=== PATIENT | female | born 1970 | race Caucasian/White ===

== ENCOUNTER 2019-12-16 13:20 | Emergency (ER) | payer BC, SELFPAY ==
[2019-12-16 13:26] VITALS: BP 170/93; PULSE 91; RESP 16; TEMP 37.1; O2SAT 100; BMI 25.7
--- NOTE | 2019-12-16 13:26 | ED_ITS ---
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
--- NOTE | 2019-12-16 13:31 | PC.NURSE ---
EKG done at 1330 and shown to ER doctor
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
--- NOTE | 2019-12-16 13:43 | XR_ITS ---
WS: [id number] FOREARM RIGHT TECHNIQUE: 2 views of the right forearm CLINICAL INFORMATION: trauma COMPARISON: None. FINDINGS: No evidence of radial head dislocation. The radius and ulna appear normal. No visualized forearm frac tures. Normal radiocarpal joint. XR/XR forearm RT 2V [id number] IMPRESSION: Normal right forearm.
[2019-12-16 14:02] LABS: Basophils % 0.7 %; Eosinophils # 0.1 10^3/uL (0.0-0.8); Eosinophils % 2.4 %; Hemoglobin 9.2 g/dL (11.5-15.3); Lymphocytes # 1.8 10^3/uL (0.8-4.8); Lymphocytes % 29.5 %; Mean Corpuscular HGB Conc 27.9 g/dL (30.0-36.0); Mean Corpuscular Hemoglobin 19.4 pg (28.0-34.0); Mean Corpuscular Volume 69.5 fL (81-99); Mean Platelet Volume 10.6 fL (7.4-10.4); Monocytes # 0.5 10^3/uL (0.2-0.9); Monocytes % 7.7 %; Neutrophils # 3.5 10^3/uL (1.8-7.7); Neutrophils % 59.5 %; Nucleated Red Blood Cells % 0 %; Platelet Count 428 10^3/cmm (130-400); Red Blood Count 4.75 10^6/uL (4.1-5.3); Red Cell Distribution Width 17.6 % (12.1-15.1); White Blood Count 5.9 10^3/uL (4.0-10.0)
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
[2019-12-16 14:35] LABS: HCG, Serum Qual Negative (Negative)
[2019-12-16 15:10] LABS: Alanine Aminotransferase 35 U/L (0-33); Albumin Level 4.2 g/dL (3.5-5.2); Alkaline Phosphatase 119 IU/L (35-105); Anion Gap 17.9 (5-19); Aspartate Amino Transferase 40 U/L (0-32); Blood Urea Nitrogen 11 mg/dL (6-20); Calcium 8.9 mg/dL (8.5-10.5); Carbon Dioxide 20 mmol/L (22-29); Chloride 101 mmol/L (98-107); Globulin 3.1 g/dL (1.3-4.6); Glomerular Filtration Rate 107.2 mL/min (90-130); Glucose 111 mg/dL (65-115); Osmolality Calculated 277 mOsm/kg (285-295); Potassium 3.9 mmol/L (3.5-5.1); Sodium 135 mmol/L (136-145); Total Bilirubin 0.2 mg/dL (0.15-1.2); Total Protein 7.3 g/dL (6.6-8.7)
[2019-12-16 15:12] LABS: Alcohol Level < 10 mg/dL (0-10); Creatine Phosphokinase 331 U/L (26-192)
[2019-12-16 15:22] LABS: Add Urine Microscopic? NO
[2019-12-16 15:29] LABS: Bilirubin Urine Neg (NEGATIVE); Blood Urine Neg (Negative); Glucose Urine UA Norm (Normal); Ketones Urine Negative (Negative); Leukocyte Esterase Urine Negative (Negative); Nitrate Urine Negative (Negative); Protein Urine Neg (Negative); Urine Appearance Clear (CLEAR); Urine Color Yellow (Yellow); Urobilinogen Urine Norm (Negative); pH Urine 6 (5-7)
[2019-12-16 15:36] LABS: Amphetamines Screen Urine Positive (Negative); Barbiturates Screen Urine Negative (Negative); Benzodiazepines Screen Urine Negative (Negative); Cocaine Screen Urine Negative (Negative); Opiate Screen Urine Negative (Negative); PCP Screen Urine Negative (Negative); THC Screen Urine Negative (Negative)
[2019-12-16 16:00] VITALS: BP 136/74; PULSE 78; RESP 18; O2SAT 98
== END 2019-12-16 16:04 | disposition home or self-care (01) ==
PROVIDERS: Emergency Provider Physician Assistant
DX: F15.90 Other stimulant use, unspecified, uncomplicated (principal); M62.82 Rhabdomyolysis; F17.210 Nicotine dependence, cigarettes, uncomplicated
CPT/HCPCS: 12345; 36415; 70450; 73090; 80053; 80306; 80307; 81003; 82550; 84703; 85025; 99282; 99283; A9270

== ENCOUNTER 2023-04-18 16:51 | Emergency (ER) | payer BC, SELFPAY ==
[2023-04-18 16:53] VITALS: BP 168/93; PULSE 120; RESP 17; TEMP 36.7; O2SAT 97
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
== END 2023-04-18 18:46 | disposition left against medical advice (07) ==
PROVIDERS: Emergency Provider Family Medicine
DX: F41.9 Anxiety disorder, unspecified (principal); F41.1 Generalized anxiety disorder; F43.0 Acute stress reaction; Z53.21 Procedure and treatment not carried out due to patient leaving prior to being seen by health care provider; F17.210 Nicotine dependence, cigarettes, uncomplicated
CPT/HCPCS: 99282

== ENCOUNTER 2023-08-23 18:35 | Inpatient (IN) | payer BC, SELFPAY ==
[2023-08-23 18:38] VITALS: BP 201/113; PULSE 98; RESP 20; TEMP 36.8; O2SAT 99
--- NOTE | 2023-08-23 18:50 | ED.C_ITS ---
HPI - Psych 2 General: Chief Complaint: Psychiatric Symptoms Stated Complaint: SI Time Seen by Provider: 08/23/23 18:38 History of Present Illness: 52-year-old female presents for mental h ealt evaluation. She actually to me says that the reason she is having some thoughts of harming herself, is that she has a terrible headache, and has had 1 for several days. She has been vomiting as well. She was exposed to COVID a few days ago. She denies any fever. She denies cough. She says that her head hurts so bad she was considering ending her life. She does not usually get headaches. She is a daily drinker, and is intoxicated. She does have a history of mental health disease, and has been hospitalized in the distant past. Associated symptoms: Reports depression Review of Systems 2 Const: Denies: fever(s), chills or body aches Eyes: Denies: change in vision Card: Denies: chest pain or palpitations Resp: Denies: dyspnea, productive cough, non-productive cough or wheezing GI: Reports: nausea and vomiting; Denies: abdominal pain, diarrhea or hematochezia : Denies: difficulty voiding Skin/Breast: Denies: rash Neuro: Denies: headache(s), weakness in extremities, dizziness or confusion Psych: Reports: anxiety and depression PFS ED 2 PFSH: Social History Smoking and tobacco/nicotine status: current every day tobacco/nicotine user Physical Exam 2 Const: GENERAL APPEARANCE: cooperative; not ill appearing and not frail appearing NUTRITIONAL APPEARANCE: thin HENMT: COMMON NORMALS: normocephalic and Normal external nose present HEAD & SCALP: normocephalic and scalp lesion (Multiple scabies lesions to the scalp.) FACE & SINUS: normal facial exam and face symmetric NOSE: Normal external nose present Eye: COMMON NORMALS: Equal, round and reactive pupils present and EOMs intact bilaterally PUPIL: Yes Equal, round and reactive pupils present Neck/C-Spine: GENERAL: Yes trachea midline Chest: CHEST: Yes Symmetrical chest wall rise Resp: COMMON NORMALS: normal respiratory effort, No retractions, No use of accessory muscles and clear to auscultation bilaterally AUSCULTATION: clear to auscultation bilaterally Cardio: COMMON NORMALS: regular rate and regular rhythm RATE: regular rate RHYTHM: regular rhythm GI: COMMON NORMALS: Normal to inspection, nondistended, normoactive bowel sounds present Extremity: COMMON NORMALS: no pedal edema Neuro: RAVI COMA SCALE: document GCS findings [place] coma scale eye opening: Spontaneous Ravi coma scale verbal response: Orientated Ravi coma scale motor response: Obey commands [place] coma scale total score: 15 S ENSORY EXAM: Yes extremities (intact) Psych: COMMON NORMALS: speech normal SPEECH: Yes normal speech Skin: NARRATIVE SKIN EXAM: See scalp exam Course 2 Vital Signs: Vital signs: Vital Signs Temperature 98.3 F 08/23/23 18:38 Pulse Rate 98 08/23/23 18:38 Respiratory Rate 18 08/23/23 20:21 Blood Pressure 201/113 08/23/23 18:38 Pulse Oximetry 99 08/23/23 18:38 Oxygen Delivery Me thod Room Air 08/23/23 18:38 MDM - Psych Medical Decision Making Patient's headache is improved. She is still suicidal. Plan was to get hit by car. Her hemoglobin is 7.5. This will require at least outpatient follow-up and workup. Her potassium is 3.2 and is repleted. She is marijuana positive, with an alcohol level of 310. She is a daily drinker, and functions at this level very likely. She is completely conversant and does not appear significantly intoxicated at all on exam. She does have a nitrate positive urinary tract infection which will be treated. Liver enzymes are elevated, likely from alcoholism, but ultrasound of the gallbladder and liver have been ordered. Spoke with psychiatry. They are willing to take in the inpatient setting provided scabies situation is controlled, and ultrasound is not remarkable. Ultrasound not remarkable. Because of scabies infestation, patient will have to be admitted to the medical floor with a sitter instead of NPU. [facility] protocol orders written. UTI will be treated. Lab Data 08/23/23 19:02 08/23/23 19:02 Radiology Impressions Gallbladder Ultrasound 08/23/23 21:02 IMPRESSION: No acute findings. Laboratory Results WBC 5.04 10^3/uL (3.29-11.43) 08/23/23 19:02 RBC 3.79 10^6/uL (3.85-5.65) L 08/23/23 19:02 Hgb 7.50 g/dL (11.27-16.99) L 08/23/23 19:02 Hct 26.4 % (36-47) L 08/23/23 19:02 MCV 69.7 fl (85-98) L 08/23/23 19:02 MCH 19.8 pg (27-33) L 08/23/23 19:02 MCHC 28.4 g/dL (30-55) L 08/23/23 19:02 RDW 19.7 % (12.1-15.1) H 08/23/23 19:02 Plt Count 324 10^3/cmm (157-399) 08/23/23 19:02 MPV 9.5 fL (7.4-10.4) 08/23/23 19:02 Neut % (Auto) 43.9 % 08/23/23 19:02 Lymph % (Auto) 39.9 % 08/23/23 19:02 Adams % (Auto) 7.3 % 08/23/23 19:02 Eos % (Auto) 6.9 % 08/23/23 19:02 Baso % (Auto) 1.8 % 08/23/23 19:02 Neut # (Auto) 2.21 10^3/uL (1.8-7.7) 08/23/23 19:02 Lymph # (Auto) 2.0 10^3/uL (0.8-4.8) 08/23/23 19:02 Adams # (Auto) 0.4 10^3/uL (0.2-0.9) 08/23/23 19:02 Eos # (Auto) 0.4 10^3/uL (0.0-0.8) 08/23/23 19:02 Baso # (Auto) 0.1 10^3/uL (0.0-0.1) 08/23/23 19:02 Nucleated RBC % (auto) 0 % 08/23/23 19:02 Nucleated RBCs # 0.0 /100WBC 08/23/23 19:02 Sodium 137 mmol/L (136-145) 08/23/23 19:02 Potassium 3.2 mmol/L (3.5-5.1) L 08/23/23 19:02 Chloride 101 mmol/L (98-107) 08/23/23 19:02 Carbon Dioxide 25 mmol/L (22-29) 08/23/23 19:02 Anion Gap 14.2 (5-19) 08/23/23 19:02 BUN 10 mg/dL (6-20) 08/23/23 19:02 Creatinine 0.7 mg/dL (0.5-0.9) 08/23/23 19:02 GFR Calculation 88.6 mL/min (90-130) L 08/23/23 19:02 Glucose 84 mg/dL (65-115) 08/23/23 19:02 Calculated Osmolality 282 mOsm/kg (285-295) L 08/23/23 19:02 Calcium 8.5 mg/dL (8.5-10.5) 08/23/23 19:02 Total Bilirubin 0.3 mg/dL (0.15-1.2) 08/23/23 19:02 AST 216 U/L (0-32) H 08/23/23 19:02 ALT 86 U/L (0-33) H 08/23/23 19:02 Alkaline Phosphatase 163 U/L (35-105) H 08/23/23 19:02 Total Protein 8.4 g/dL (6.6-8.7) 08/23/23 19:02 Albumin 3.7 g/dL (3.5-5.2) 08/23/23 19:02 Globulin 4.7 g/dL (1.3-4.6) H 08/23/23 19:02 Lipase 100 U/L (13-60) H 08/23/23 19:02 HCG, Qual Negative (Negative) 08/23/23 19:07 Urine Color Yellow (Yellow) 08/23/23 19:07 Urine Appearance Cloudy (CLEAR) A 08/23/23 19:07 Urine pH 6.5 (5-7) 08/23/23 19:07 Ur Specific [place] 1.015 (1.005-1.030) 08/23/23 19:07 Urine Protein Trace (Negative) 08/23/23 19:07 Urine Glucose (UA) Norm (Normal) 08/23/23 19:07 Urine Ketones Negative (Negative) 08/23/23 19:07 Urine Blood Neg (Negative) 08/23/23 19:07 Urine Nitrate Positive (Negative) H 08/23/23 19:07 Urine Bilirubin Neg (Negative) 08/23/23 19:07 Urine Urobilinogen Norm mg/dL (Negative) 08/23/23 19:07 Ur Leukocyte Esterase 1+ (Negative) H 08/23/23 19:07 Urine RBC 5-10 /hpf (0-2) H 08/23/23 19:07 Urine WBC 55-80 /hpf (0-5) H 08/23/23 19:07 Ur Squamous Epith Cells 5-10 /hpf (0-5) H 08/23/23 19:07 Amorphous Sediment Not Reportable 08/23/23 19:07 Urine Bacteria 2+ /hpf (NONE) H 08/23/23 19:07 Urine Mucus 1+ /hpf 08/23/23 19:07 Salicylates < 0.3 mg/dL (3-10) L 08/23/23 19:02 Urine Opiates Screen Negative ng/mL (Negative) 08/23/23 19:07 Acetaminophen < 5.0 ug/mL (10-30) L 08/23/23 19:02 Ur Barbiturates Screen Negative ng/mL (Negative) 08/23/23 19:07 Ur Phencyclidine Scrn Negative ng/mL (Negative) 08/23/23 19:07 Ur Amphetamines Screen Negative ng/mL (Negative) 08/23/23 19:07 U Benzodiazepines Scrn Negative ng/mL (Negative) 08/23/23 19:07 Urine Cocaine Screen Negative ng/mL (Negative) 08/23/23 19:07 U Marijuana (THC) Screen Positive ng/mL (Negative) H 08/23/23 19:07 Ethyl Alcohol 310 mg/dL (0-10) H* 08/23/23 19:02 SARS-CoV-2 Ag (Rapid) negative (Negative) 08/23/23 20:29 No radiology studies performed this visit Discharge Plan Discharge Patient Disposition: Admitted As Inpatient Clinical Impression: Suicidal ideation, Depression, Alcohol abuse, UTI (urinary tract infection) Condition: Stable Coding Level of Care Code ED Manufacturing Tech for Apryl Liang
[2023-08-23 19:05] LABS: Basophils # 0.1 10^3/uL (0.0-0.1); Basophils % 1.8 %; Eosinophils # 0.4 10^3/uL (0.0-0.8); Eosinophils % 6.9 %; Hematocrit 26.4 % (36-47); Lymphocytes % 39.9 %; Mean Corpuscular HGB Conc 28.4 g/dL (30-55); Mean Corpuscular Hemoglobin 19.8 pg (27-33); Mean Corpuscular Volume 69.7 fl (85-98); Mean Platelet Volume 9.5 fL (7.4-10.4); Monocytes # 0.4 10^3/uL (0.2-0.9); Monocytes % 7.3 %; Neutrophils # 2.21 10^3/uL (1.8-7.7); Neutrophils % 43.9 %; Nucleated Red Blood Cells % 0 %; Platelet Count 324 10^3/cmm (157-399); Red Blood Count 3.79 10^6/uL (3.85-5.65); Red Cell Distribution Width 19.7 % (12.1-15.1); White Blood Count 5.04 10^3/uL (3.29-11.43)
--- NOTE | 2023-08-23 19:11 | PC.NURSE ---
Patient dressed out of street clothes and placed in paper scrubs. Placed in cleared psych room with PSA present. All belongings removed and placed in labeled bags.
[2023-08-23 19:32] LABS: Alanine Aminotransferase 86 U/L (0-33); Albumin Level 3.7 g/dL (3.5-5.2); Alkaline Phosphatase 163 U/L (35-105); Anion Gap 14.2 (5-19); Aspartate Amino Transferase 216 U/L (0-32); Blood Urea Nitrogen 10 mg/dL (6-20); Calcium 8.5 mg/dL (8.5-10.5); Carbon Dioxide 25 mmol/L (22-29); Chloride 101 mmol/L (98-107); Globulin 4.7 g/dL (1.3-4.6); Glomerular Filtration Rate 88.6 mL/min (90-130); Glucose 84 mg/dL (65-115); Osmolality Calculated 282 mOsm/kg (285-295); Potassium 3.2 mmol/L (3.5-5.1); Sodium 137 mmol/L (136-145); Total Bilirubin 0.3 mg/dL (0.15-1.2); Total Protein 8.4 g/dL (6.6-8.7)
[2023-08-23 19:33] LABS: Lipase 100 U/L (13-60)
[2023-08-23 19:35] LABS: Acetaminophen < 5.0 ug/mL (10-30); Salicylate < 0.3 mg/dL (3-10)
[2023-08-23 19:36] LABS: Alcohol Level 310 mg/dL (0-10)
[2023-08-23 19:53] LABS: HCG Qualitative Urine. Negative (Negative)
[2023-08-23 19:56] LABS: Amphetamines Screen Urine Negative (Negative); Barbiturates Screen Urine Negative (Negative); Benzodiazepines Screen Urine Negative (Negative); Cocaine Screen Urine Negative (Negative); Opiate Screen Urine Negative (Negative); PCP Screen Urine Negative (Negative); THC Screen Urine Positive (Negative)
[2023-08-23 20:18] LABS: Add Urine Microscopic? YES
[2023-08-23 20:19] LABS: Add Urine Culture? Yes; Bacteria Urine 2+ /hpf; Bilirubin Urine Neg (Negative); Blood Urine Neg (Negative); Glucose Urine UA Norm (Normal); Ketones Urine Negative (Negative); Leukocyte Esterase Urine 1+ (Negative); Mucus Urine 1+ /hpf; Nitrate Urine Positive (Negative); Protein Urine Trace (Negative); Specific Gravity, Urine 1.015 (1.005-1.030); Urine Appearance Cloudy (CLEAR); Urine Color Yellow (Yellow); Urobilinogen Urine Norm (Negative); WBC Urine 55-80 /hpf (0-5); pH Urine 6.5 (5-7)
[2023-08-23 20:21] VITALS: RESP 18
[2023-08-23] MEDS: sodium chloride 0.9% 1,000 ML 999 ML IV (20:21)
[2023-08-23] MEDS: morphine 4 mg/mL SDV 1 mL IVP (20:21)
[2023-08-23] MEDS: ondansetron 2 mg/ML SDV 2 mL 4 MG IVP (20:22)
[2023-08-23] MEDS: ketorolac 30 mg/mL INJ IVP (20:22)
[2023-08-23 20:51] LABS: SARS Covid-2 Antigen negative (Negative)
--- NOTE | 2023-08-23 21:02 | USR_ITS ---
PROCEDURE INFORMATION: Exam: US Abdomen, Limited; Right Upper Quadrant Exam date and time: 08/23/2023 10:29 PM Age: 52 years old Clinical indication: Abdominal pain; Generalized; Additional info: Vomiting, elevated lfts and lipase TECHNIQUE: Imaging protocol: Real time ultrasound of the abdomen with image documentation. Limited exam focused on the right upper quadrant. COMPARISON: No relevant prior studies available. FINDINGS: Liver: Liver measures 14.8 cm in length. Unremarkable. Gallbladder: No gallstones. No wall thickening. Biliary ducts: No biliary ductal dilation. Pancreas: Visualized portions of the pancreas are unremarkable. Right kidney: Unremarkable right kidney. Aorta: Proximal aorta is normal caliber. US/US gall bladder [id number] IMPRESSION: No acute findings.
[2023-08-23] MEDS: nitrofurantoin SR (BID) 100 mg Capsule PO (22:33)
[2023-08-23] MEDS: potassium chloride ER 20 mEq Tablet 40 MEQ PO (22:33)
[2023-08-24] VITALS (10 sets, daily range): BP systolic 179–209; BP diastolic 90–109; PULSE 84–107; RESP 16–18; TEMP 36.9–37.2; O2SAT 96–99; BMI 20.5
--- NOTE | 2023-08-24 00:58 | PC.NURSE ---
Report was called to Sonam HAGER. Pt transferred with all paperwork and belongings.
[2023-08-24] MEDS: LORazepam 2 mg Tablet PO ×2 (01:39→02:33)
--- NOTE | 2023-08-24 01:47 | PC.NURSE ---
This nurse assessed the patient. She has various small scabs on her body, including her scalp, arms, and legs. Some of the scabs look more recently formed than others. She is significantly disheveled and with poor hygiene. She appears very anxious; she talks rapidly and sometimes goes off on tangents and cannot sit still. She frequently squirms, fidgets, and scratches at her head, arms, and stomach. The patient states she does not have running water at home.
--- NOTE | 2023-08-24 03:55 | PC.NURSE ---
Pt had high, [id number] blood pressures unmanaged with [facility] protocol. Called Dr. Hoang and asked if he would like to consult a hospitalist for medical management of the patient. Dr. Haong stated yes, and gave the order for a consult to the hospitalist. Order put in, notified Dr. Zhong of the new consult via VOAL[facility], to which Dr. Zhong replied Ok .
[2023-08-24] MEDS: cloNIDine 0.1 mg Tablet PO (03:59)
--- NOTE | 2023-08-24 08:34 | PC.PHAR ---
WILL CALL CANDI AT 9AM TO DISCUSS ANY MEDICATIONS PT MAY BE TAKING. 08/24/23
[2023-08-24] MEDS: multivitamin therapeutic Tablet 1 TAB PO (09:36)
[2023-08-24] MEDS: folic acid 1 mg Tablet PO (09:36)
[2023-08-24] MEDS: thiamine 100 mg Tablet PO (09:37)
[2023-08-24] MEDS: nitrofurantoin SR (BID) 100 mg Capsule PO ×2 (09:37→18:02)
[2023-08-24] MEDS: PHENobarbital 130 mg/mL SDV 1 mL 60 MG IVP (10:53)
[2023-08-24] MEDS: potassium chloride ER 20 mEq Tablet 40 MEQ PO (10:53)
[2023-08-24] MEDS: lisinopril 10 mg Tablet PO (10:53)
[2023-08-24] MEDS: hyDRALAzine 20 mg/mL INJ 1 mL 10 MG IVP (10:57)
[2023-08-24 11:55] LABS: Magnesium 1.6 mg/dL (1.7-2.3)
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
[2023-08-24] MEDS: pantoprazole 40 mg SDV IVP (18:02)
[2023-08-24 19:15] LABS: Hematocrit 26.5 % (36-47)
[2023-08-24] MEDS: ARIPiprazole 10 mg Tablet PO (21:16)
[2023-08-24] MEDS: trazodone 50 mg Tablet PO (21:16)
[2023-08-24] MEDS: magnesium oxide 400 mg tablet PO (21:16)
[2023-08-24] MEDS: cefTRIAXone 1,000 MG in sodium chloride 0.9% (plus) 50 ML 100 MG IV (21:16)
[2023-08-25] VITALS (7 sets, daily range): BP systolic 133–172; BP diastolic 78–92; PULSE 92–111; RESP 16–18; TEMP 36.7–37.1; O2SAT 95–99
[2023-08-25 04:53] LABS: Basophils # 0.1 10^3/uL (0.0-0.1); Eosinophils # 0.5 10^3/uL (0.0-0.8); Eosinophils % 8.1 %; Hematocrit 27.1 % (36-47); Lymphocytes # 0.8 10^3/uL (0.8-4.8); Lymphocytes % 12.6 %; Mean Corpuscular HGB Conc 27.7 g/dL (30-55); Mean Corpuscular Hemoglobin 19.6 pg (27-33); Mean Corpuscular Volume 70.9 fl (85-98); Mean Platelet Volume 10.6 fL (7.4-10.4); Monocytes # 0.4 10^3/uL (0.2-0.9); Neutrophils # 4.39 10^3/uL (1.8-7.7); Neutrophils % 71.1 %; Nucleated Red Blood Cells % 0 %; Platelet Count 294 10^3/cmm (157-399); Red Blood Count 3.82 10^6/uL (3.85-5.65); Red Cell Distribution Width 19.1 % (12.1-15.1); White Blood Count 6.17 10^3/uL (3.29-11.43)
[2023-08-25 05:08] LABS: Alanine Aminotransferase 76 U/L (0-33); Albumin Level 3.6 g/dL (3.5-5.2); Alkaline Phosphatase 175 U/L (35-105); Anion Gap 13.3 (5-19); Aspartate Amino Transferase 157 U/L (0-32); Blood Urea Nitrogen 10 mg/dL (6-20); Carbon Dioxide 26 mmol/L (22-29); Chloride 96 mmol/L (98-107); Globulin 4.4 g/dL (1.3-4.6); Glomerular Filtration Rate 88.6 mL/min (90-130); Glucose 101 mg/dL (65-115); Osmolality Calculated 271 mOsm/kg (285-295); Potassium 4.3 mmol/L (3.5-5.1); Sodium 131 mmol/L (136-145); Total Bilirubin 0.6 mg/dL (0.15-1.2)
--- NOTE | 2023-08-25 08:48 | P.NPUPN_ITS ---
Subjective NPU 2 Subjective: Patient presented today reporting that she is doing fine. She is finding it hard to believe that she does not have scabies and cannot explain why she is still itchy. We discussed not being a rare situation where someone may have delusions related to bugs. Or parasites. We discussed her being transferred to the unit/neuropsychiatric unit to stabilize on the Abilify. Mental Status Exam 2 MSE Comments: This is a slender white female in hospital gown with limited grooming but adequate eye contact. Patches of hair on her head are missing with a couple of small pencil sized areas of redness. No abnormal movements except for mild psychomotor agitation. Cooperative with exam in mild to moderate distress. Speech was normal rate and volume. Mood described as anxious and depressed, affect anxious. Thought process organized. Thought content: Patient denies suicidal ideation in general but reports that the way here head is feeling she would kill herself, she denied homicidal ideations, there were no delusions reported but concern for somatic delusions noted, she denied auditory or visual hallucinations but might be having visual hallucinations of bugs and some tactile hallucinations. Attention and concentration were mostly intact and memory appeared mostly reliable but none were formally tested. She is alert and oriented x 3. Insight, judgment and impulse control are impaired. Vitals/I&O/Wt Last Vital Signs Temp 98.4 F 08/25/23 08:00 Pulse 111 H 08/25/23 08:00 Resp 18 08/25/23 08:00 BP 149/82 08/25/23 08:00 Pulse Ox 99 08/25/23 08:00 O2 Del Method Room Air 08/25/23 08:00 08/24/23 08/25/23 08/25/23 22:59 06:59 14:59 Intake Total 770 / 1730 240 / 1970 Balance 770 / 1730 240 / 1970 Weight last 48 hrs Weight 58.332 kg Weight 54.431 kg Weight 54.431 kg Weight 54.431 kg Data NPU 08/26/23 04:52 08/26/23 04:52 A&P Assessment and plan (1) Suicidal ideation: (2) Depression: (3) Alcohol abuse: (4) UTI (urinary tract infection): (5) Psychosis: Plan This is a 52-year-old white female experiencing severe distress related to physical symptoms and has a history of mental health issues. She is currently off psychiatric medication but is experiencing severe depression and anxiety. She has a history of hospitalizations for mental health issues and has experienced hallucinations now reporting a belief that she has scabies but has not been validated with concerns of these being hallucinations.. 1. Initiated Abilify 10 mg p.o. daily. 2. Will monitor on MedSurg until we have confirmation of the absence of scabies. 3. Agree with [facility] protocol. 4. Encourage sober living treatment after discharge at the highest level care to which she is willing to commit. 5. Transfer to neuropsychiatric unit once medically cleared. Attestations NPU 2 Medical Necessity Statement*: Inpatient hospitalization is medically necessary and the clinically appropriate intervention at this time. We will monitor medications and make changes as indicated. Likely length of stay 2-4 days. Coding Level of Care Code Acute Code for g Fwd Diagnoses Suicidal ideation R45.851 Depression F32.A Alcohol abuse F10.10 UTI (urinary tract infection) N39.0 Psychosis F29
[2023-08-25] MEDS: multivitamin therapeutic Tablet 1 TAB PO (09:53)
[2023-08-25] MEDS: magnesium oxide 400 mg tablet PO ×2 (09:54→17:06)
[2023-08-25] MEDS: pantoprazole 40 mg SDV IVP ×2 (09:54→17:06)
[2023-08-25] MEDS: thiamine 100 mg Tablet PO (09:54)
[2023-08-25] MEDS: lisinopril 10 mg Tablet PO (09:54)
[2023-08-25] MEDS: nitrofurantoin SR (BID) 100 mg Capsule PO ×2 (09:54→17:06)
[2023-08-25] MEDS: folic acid 1 mg Tablet PO (09:54)
[2023-08-25] MEDS: ARIPiprazole 10 mg Tablet PO (09:54)
[2023-08-25 09:57] LABS: Ferritin 33 ng/mL (15-150); Iron 24 ug/dL (37-145); Percent Saturation 5.8 % (20-50); Total Iron Binding Capacity 408 mcg/dl; Unsaturated Iron Binding 384 ug/dL (112-347)
--- NOTE | 2023-08-25 10:08 | PM.CONSULT ---
Providers/Reason For Consult Consulting Physician/Specialty*: Hospitalist Reason for Consult*: Anemia, hypertension, Attending Physician: Lucian Hoang MD History of Present Illness History of Present Illness Kathrine Dunne is a 52 year old female who has been admitted for alcohol detoxification Patient is stating that she has used permethrin multiple times and now she is very anxious and keeps itching her head She is denying fever, very anxious Has signs of active withdrawal Hypertensive Hospital service was requested to manage her blood pressure Review of Systems Const: Denies: fever(s) Eyes: Denies: change in vision ENMT: Denies: throat pain Card: Denies: chest pain Resp: Denies: dyspnea GI: Denies: abdominal pain : Denies: flank pain Medications/Allergies Home Medications Medication Instructions Recorded Confirmed Last Taken Type No Known Home Medications 12/16/19 08/24/23 Unknown History Allergies Allergy/AdvReac Type Severity Reaction Status Date / Time No Known Allergies Allergy Verified 08/23/23 18:48 Current Medications Generic Name Dose Route Start Last Admin Trade Name Freq PRN Reason Stop Dose Admin Folic Acid 1 mg 08/24/23 09:00 08/24/23 09:36 Folic Acid 1 Mg Tablet PO 1 mg DAILY VANESSA Administration Lorazepam 2 mg 08/24/23 01:20 08/24/23 02:33 Lorazepam 2 Mg Tablet PO 2 mg PROTOCOL PRN Administration WITHDRAWAL Protocol Multivitamins Therapeutic 1 tab 08/24/23 09:00 08/24/23 09:36 Multivitamin Therapeutic Tablet PO 1 tab DAILY VANESSA Administration Nitrofurantoin Macrocrystals 100 mg 08/24/23 09:00 08/24/23 09:37 Nitrofurantoin Sr (Bid) 100 Mg Capsule PO 100 mg BID VANESSA Administration Thiamine Mononitrate 100 mg 08/24/23 09:00 08/24/23 09:37 Thiamine 100 Mg Tablet PO 100 mg DAILY VANESSA Administration PFSH Acute PFSH: Social History Smoking and tobacco/nicotine status: current every day tobacco/nicotine user Vitals/I&O/Wt Last Vital Signs Temp 98.6 F 08/24/23 08:24 Pulse 84 08/24/23 08:24 Resp 18 08/24/23 08:24 BP 193/99 08/24/23 08:24 Pulse Ox 99 08/24/23 08:24 O2 Del Method Room Air 08/24/23 08:24 08/23/23 08/24/23 08/24/23 22:59 06:59 14:59 Intake Total 1200 / 1200 480 / 480 Balance 1200 / 1200 480 / 480 Weight last 48 hrs Weight 54.431 kg Weight 54.431 kg Weight 54.431 kg Physical Exam Narrative: Awake and alert Trichotillomania Very anxious Signs of withdrawal present Hypertensive Tachycardia Currently on room air Dehydrated Focal neuro exam Data 08/25/23 04:20 08/25/23 04:20 A&P Assessment and plan (1) Suicidal ideation: (2) Depression: (3) Alcohol abuse: (4) UTI (urinary tract infection): (5) Iron deficiency anemia: Plan Alcohol abuse Iron deficiency anemia Will give iron and 1 bag PRBC for FOBT Marijuana abuse I will give patient [facility] protocol For hypertension we will use lisinopril and chlorthalidone Will request TSH I do believe for better alcohol withdrawal symptoms control blood pressure would improve Patient is on benzodiazepine [facility] protocol Medicine will follow along Gallbladder ultrasound unremarkable Patient is due for colonoscopy as she is 52 years old, it can be done on outpatient basis if FOBT stays negative If FOBT is positive would recommend general surgery for EGD colonoscopy She may be suffering from alcohol gastritis She is already on Protonix 40 mg IV twice daily Scabies: I do not think she has scabies 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
[2023-08-25 10:13] LABS: Vitamin B12 717 pg/mL (232-1245)
[2023-08-25] MEDS: sodium chloride 0.9% 100 mL Bag 50 ML IV (10:37)
--- NOTE | 2023-08-25 11:10 | PC.NURSE ---
Pt informed of RBC tranfusion, pt refused. Educated of need of tranfusion but pt continues to refuse. Dr. Sims notified.
[2023-08-25] MEDS: amlodipine 10 mg Tablet PO (11:14)
[2023-08-25] MEDS: iron sucrose 200 MG in sodium chloride 0.9% (100 ml) 100 ML 220 MG IV (11:36)
[2023-08-25] MEDS: chlorthalidone 25 mg Tablet 12.5 MG PO (13:35)
[2023-08-25] MEDS: diphenhydrAMINE 50 mg Capsule PO ×2 (14:36→21:59)
[2023-08-25] MEDS: cefTRIAXone 1,000 MG in sodium chloride 0.9% (plus) 50 ML 100 MG IV (18:07)
[2023-08-25] MEDS: zolpidem 5 mg Tablet PO (20:08)
[2023-08-26 04:00] VITALS: BP 169/91; PULSE 94; RESP 17; TEMP 36.7; O2SAT 98
[2023-08-26 05:27] LABS: Basophils # 0.1 10^3/uL (0.0-0.1); Eosinophils # 0.8 10^3/uL (0.0-0.8); Eosinophils % 14.1 %; Hematocrit 27.8 % (36-47); Lymphocytes # 0.8 10^3/uL (0.8-4.8); Lymphocytes % 14.1 %; Mean Corpuscular HGB Conc 28.8 g/dL (30-55); Mean Corpuscular Hemoglobin 19.8 pg (27-33); Mean Corpuscular Volume 68.6 fl (85-98); Mean Platelet Volume 10.5 fL (7.4-10.4); Monocytes # 0.5 10^3/uL (0.2-0.9); Monocytes % 7.6 %; Neutrophils # 3.75 10^3/uL (1.8-7.7); Neutrophils % 62.9 %; Nucleated Red Blood Cells % 0 %; Platelet Count 302 10^3/cmm (157-399); Red Blood Count 4.05 10^6/uL (3.85-5.65); Red Cell Distribution Width 18.7 % (12.1-15.1); White Blood Count 5.96 10^3/uL (3.29-11.43)
[2023-08-26 05:37] LABS: Anion Gap 11.6 (5-19); Blood Urea Nitrogen 8 mg/dL (6-20); Calcium 8.8 mg/dL (8.5-10.5); Carbon Dioxide 25 mmol/L (22-29); Chloride 93 mmol/L (98-107); Creatinine Clr Calc Pharmacy 99.4373; Glomerular Filtration Rate 105.8 mL/min (90-130); Glucose 96 mg/dL (65-115); Osmolality Calculated 260 mOsm/kg (285-295); Potassium 3.6 mmol/L (3.5-5.1); Sodium 126 mmol/L (136-145)
[2023-08-26] MEDS: folic acid 1 mg Tablet PO (07:40)
[2023-08-26] MEDS: magnesium oxide 400 mg tablet PO ×2 (07:40→17:31)
[2023-08-26] MEDS: chlorthalidone 25 mg Tablet 12.5 MG PO (07:40)
[2023-08-26] MEDS: multivitamin therapeutic Tablet 1 TAB PO (07:41)
[2023-08-26] MEDS: nitrofurantoin SR (BID) 100 mg Capsule PO ×2 (07:41→17:31)
[2023-08-26] MEDS: pantoprazole 40 mg SDV IVP (07:42)
[2023-08-26] MEDS: amlodipine 10 mg Tablet PO (07:42)
[2023-08-26] MEDS: thiamine 100 mg Tablet PO (07:42)
[2023-08-26] MEDS: lisinopril 10 mg Tablet PO (07:42)
[2023-08-26] MEDS: ARIPiprazole 10 mg Tablet PO (07:43)
--- NOTE | 2023-08-26 07:54 | W.PM.NPUPNS ---
Subjective NPU Subjective: Patient presented today feeling okay about being transferred down to the unit. She reports feeling silly that she was unable to manage her thoughts about the scabies and needing to be here. She reports that the medication seems to be working well and she is desirous of some time to acclimate to her medications. We discussed wanting to make sure that she is continuing to have improvement from the standpoint of her delusional thinking prior to discharge she reports she is open to staying. Mental Status Exam MSE Comments: This is a slender white female in hospital gown with limited grooming but adequate eye contact. Patches of hair on her head are missing with a couple of small pencil sized areas of redness. No abnormal movements except for mild psychomotor agitation. Cooperative with exam in mild to moderate distress. Speech was normal rate and volume. Mood described as anxious and depressed, affect anxious. Thought process organized. Thought content: Patient denies suicidal ideation in general but reports that the way here head is feeling she would kill herself, she denied homicidal ideations, there were no delusions reported but concern for somatic delusions noted, she denied auditory or visual hallucinations but might be having visual hallucinations of bugs and some tactile hallucinations. Attention and concentration were mostly intact and memory appeared mostly reliable but none were formally tested. She is alert and oriented x 2 wondering if tomorrow was New Year's. Insight, judgment and impulse control are impaired. Vitals/I&O/Wt Last Vital Signs Temp 98.0 F 08/26/23 04:00 Pulse 94 08/26/23 04:00 Resp 17 08/26/23 04:00 BP 169/91 08/26/23 04:00 Pulse Ox 98 08/26/23 04:00 O2 Del Method Room Air 08/26/23 04:00 08/25/23 08/26/23 08/26/23 22:59 06:59 14:59 Intake Total 290 / 880 Balance 290 / 880 Weight last 48 hrs Weight 58.332 kg Data NPU 08/26/23 04:52 08/26/23 04:52 Micro: Microbiology 08/23/23 19:07 Urine Culture - Final Urine,Clean Catch Microbiology 08/23/23 19:07 Urine,Clean Catch Urine Culture - Final A&P Assessment and plan (1) Suicidal ideation: (2) Depression: (3) Alcohol abuse: (4) UTI (urinary tract infection): (5) Psychosis: Plan This is a 52-year-old white female experiencing severe distress related to physical symptoms and has a history of mental health issues. She is currently off psychiatric medication but is experiencing severe depression and anxiety. She has a history of hospitalizations for mental health issues and has experienced hallucinations now reporting a belief that she has scabies but has not been validated with concerns of these being hallucinations.. 1. Initiated Abilify 10 mg p.o. daily. Increase to 15 mg p.o. daily. 2. No signs of scabies will transfer to neuropsychiatric unit. 3. Initiate every 15 minute checks for safety on the unit. 4. Encourage sober living treatment after discharge at the highest level care to which she is willing to commit. 5. Obtain collateral information. Attestations NPU Medical Necessity Statement*: Inpatient hospitalization is medically necessary and the clinically appropriate intervention at this time. We will monitor medications and make changes as indicated. Likely length of stay 2-4 days. Coding Level of Care Code Acute Code for [facility] Diagnoses Suicidal ideation R45.851 Depression F32.A Alcohol abuse F10.10 UTI (urinary tract infection) N39.0 Psychosis F29
[2023-08-26 08:43] VITALS: BP 153/87; PULSE 95; RESP 18; TEMP 36.4; O2SAT 99
--- NOTE | 2023-08-26 09:04 | PC.OT ---
OT EVALUATION ORDERS RECEIVED. PATIENT NOT ON NPU AT THIS TIME; WILL ASSESS FOR OT GROUPS WHEN MOVED TO NPU
--- NOTE | 2023-08-26 10:45 | P.PN_ITS ---
Subjective 2 Subjective: She has refused her PRBC, she got her iron bag yesterday Stating that her itching has significantly improved, she is stating that she has been dealing for scabies for last 2 years, Vitals/I&O/Wt Last Vital Signs Temp 97.6 F 08/26/23 08:43 Pulse 95 08/26/23 08:43 Resp 18 08/26/23 08:43 BP 153/87 08/26/23 08:43 Pulse Ox 99 08/26/23 08:43 O2 Del Method Room Air 08/26/23 08:43 08/25/23 08/26/23 08/26/23 22:59 06:59 14:59 Intake Total 290 / 880 240 / 240 Balance 290 / 880 240 / 240 Weight last 48 hrs Weight 58.332 kg Physical Exam 2 Narrative: Awake and alert Anxious I do not see any rash in finger webs She seems to have excoriation escobar and trichotillomania signs on her scalp Pruritic rule villiform rash on her extremities back and abdomen Abdomen soft GCS 15 Currently on room air Hemodynamic stable Data 08/26/23 04:52 08/26/23 04:52 Micro: Microbiology 08/26/23 10:14 Occult Blood (FIT) - Final Stool Routine Collection 08/23/23 19:07 Urine Culture - Final Urine,Clean Catch A&P Assessment and plan (1) Suicidal ideation: (2) Depression: (3) Psychosis: (4) Alcohol abuse: (5) UTI (urinary tract infection): (6) Iron deficiency anemia: Plan I will give her permethrin treatment tonight and start ivermectin Her scalp rash is trichotillomania, scabies unlikely on her scalp UTI continue antibiotics Hemoglobin stable Received bag of iron yesterday She does have iron deficiency, FOBT pending Hemodynamic stable I might be able to transfer back to neuropsychiatric unit by tomorrow Continue thiamine folic acid No active signs of withdrawal Attestations 2 Medical Necessity Statement*: Continue medical management Diagnoses Suicidal ideation R45.851 Depression F32.A Psychosis F29 Alcohol abuse F10.10 UTI (urinary tract infection) N39.0 Iron deficiency anemia D50.9
[2023-08-26] MEDS: iron complex forte Capsule 1 EACH PO (11:20)
[2023-08-26] MEDS: sodium chloride 1 gm Tablet PO ×2 (11:20→17:31)
[2023-08-26] MEDS: permethrin cream 5% 60 gm 1 APPLIC TOPICAL (11:21)
[2023-08-26] MEDS: lisinopril 10 mg Tablet 20 MG PO (11:21)
[2023-08-26] MEDS: sodium chloride 0.9% 1,000 ML 75 ML IV (11:22)
--- NOTE | 2023-08-26 11:43 | PC.NURSE ---
Pt informed of positive occult blood in feces and tx, pt refuses blood transfusion again and does not want testing EGD. Dr. Sims informed.
[2023-08-26 12:53] VITALS: BP 132/82; PULSE 96; RESP 17; TEMP 36.6; O2SAT 100
[2023-08-26 15:48] VITALS: BP 143/78; PULSE 106; RESP 13; TEMP 36.7; O2SAT 100
[2023-08-26 16:48] VITALS: BMI 21.4
--- NOTE | 2023-08-26 17:54 | PC.NURSE ---
Pt was admitted to [facility] from [facility] due to suicidal ideations. Pt stated that she is suicidal because for the past couple weeks she has had a very bad headache, someone killed her dog, and her head has been itching none stop. She stated that all of these things put together made her suicidal. Pt was admitted to [facility] because pt told staff that she had Scabbies. After further inspection pt does not have scabbies and she was transfered down to [facility] for tx. Upon admission pt stated that she is feeling much better and wishes that she wouldnt have came to the hospital because she thinks she could have handled this on her own. Pt denies SI/HI. She stated that she has auditory and visual hallucinations but then she said i want to take back what I said, its not hallucinations its spiritual beings.
[2023-08-26 19:51] VITALS: BP 116/80; PULSE 108; RESP 18; TEMP 37.1; O2SAT 100
[2023-08-27] MEDS: diphenhydrAMINE 50 mg Capsule PO ×2 (02:50→20:03)
[2023-08-27 06:00] VITALS: BP 148/88; PULSE 95; RESP 18; TEMP 36.4; O2SAT 100
--- NOTE | 2023-08-27 08:17 | W.PM.NPUPNS ---
Subjective NPU Subjective: Patient presented today reporting that she is really missing her boyfriend and wanting to go home. She talked about him not being able to drive and then needing assistance to get somebody here with him to pick her up. We discussed the need for arranging rides second and working on her wellness first. We discussed the risks, benefits and alternatives of increasing her Abilify to 15 mg p.o. daily and she understood and agreed to proceed as is documented in this note. She identified that she continues to have the delusions but is able to have a conversation about that. She agrees she would stay and have us titrate the medication to effect. Mental Status Exam MSE Comments: This is a slender white female in hospital gown with limited grooming but adequate eye contact. Patches of hair on her head are missing with a couple of small pencil sized areas of redness. No abnormal movements except for mild psychomotor agitation. Cooperative with exam in mild distress. Speech was normal rate and volume. Mood described as a little better dismissing home, affect anxious. Thought process organized. Thought content: Patient denies suicidal or homicidal ideations, there were no delusions reported but concern for somatic delusions noted, she denied auditory or visual hallucinations but might be having visual hallucinations of bugs and some tactile hallucinations. Attention and concentration were mostly intact and memory appeared mostly reliable but none were formally tested. She is alert and oriented x 2 wondering if tomorrow was New Year's. Insight, judgment and impulse control are impaired. Vitals/I&O/Wt Last Vital Signs Temp 97.6 F 08/27/23 06:00 Pulse 95 08/27/23 06:00 Resp 18 08/27/23 06:00 BP 148/88 08/27/23 06:00 Pulse Ox 100 08/27/23 06:00 O2 Del Method Room Air 08/27/23 06:00 08/26/23 08/27/23 08/27/23 22:59 06:59 14:59 Intake Total 1000 / 1480 Balance 1000 / 1480 Weight last 48 hrs Weight 58.06 kg Weight 56.699 kg Data NPU 08/27/23 08:24 08/27/23 08:24 Micro: Microbiology 08/26/23 10:14 Occult Blood (FIT) - Final Stool Routine Collection Microbiology 08/26/23 10:14 Stool Routine Collection Occult Blood (FIT) - Final A&P Assessment and plan (1) Suicidal ideation: (2) Depression: (3) Alcohol abuse: (4) UTI (urinary tract infection): (5) Psychosis: Plan This is a 52-year-old white female experiencing severe distress related to physical symptoms and has a history of mental health issues. She is currently off psychiatric medication but is experiencing severe depression and anxiety. She has a history of hospitalizations for mental health issues and has experienced hallucinations now reporting a belief that she has scabies but has not been validated with concerns of these being hallucinations.. 1. Initiated Abilify 10 mg p.o. daily. Increased to 15 mg p.o. daily. 2. No signs of scabies will transfer to neuropsychiatric unit. 3. Initiate every 15 minute checks for safety on the unit. 4. Encourage sober living treatment after discharge at the highest level care to which she is willing to commit. 5. Obtain collateral information. Involuntary Hold Information 96 Hour Hold: 96 Hour Involuntary Admission: No Attestations NPU Medical Necessity Statement*: Inpatient hospitalization is medically necessary and the clinically appropriate intervention at this time. We will monitor medications and make changes as indicated. Likely length of stay 2-4 days. Coding Level of Care Code Acute Code for [facility] Diagnoses Suicidal ideation R45.851 Depression F32.A Alcohol abuse F10.10 UTI (urinary tract infection) N39.0 Psychosis F29
[2023-08-27 08:34] LABS: Basophils # 0.1 10^3/uL (0.0-0.1); Basophils % 0.8 %; Eosinophils # 0.9 10^3/uL (0.0-0.8); Eosinophils % 13.8 %; Hematocrit 31.7 % (36-47); Lymphocytes % 15.6 %; Mean Corpuscular HGB Conc 27.4 g/dL (30-55); Mean Corpuscular Hemoglobin 19.6 pg (27-33); Mean Corpuscular Volume 71.6 fl (85-98); Mean Platelet Volume 10.9 fL (7.4-10.4); Monocytes # 0.6 10^3/uL (0.2-0.9); Monocytes % 8.9 %; Neutrophils # 3.75 10^3/uL (1.8-7.7); Neutrophils % 60.7 %; Nucleated Red Blood Cells % 0 %; Platelet Count 318 10^3/cmm (157-399); Red Blood Count 4.43 10^6/uL (3.85-5.65); Red Cell Distribution Width 19.5 % (12.1-15.1); White Blood Count 6.17 10^3/uL (3.29-11.43)
[2023-08-27 08:49] LABS: Anion Gap 12.7 (5-19); Blood Urea Nitrogen 9 mg/dL (6-20); Calcium 8.9 mg/dL (8.5-10.5); Carbon Dioxide 23 mmol/L (22-29); Chloride 91 mmol/L (98-107); Glomerular Filtration Rate 105.8 mL/min (90-130); Glucose 100 mg/dL (65-115); Osmolality Calculated 255 mOsm/kg (285-295); Potassium 3.7 mmol/L (3.5-5.1); Sodium 123 mmol/L (136-145)
[2023-08-27 08:54] LABS: Slide Review Slide Review Perform
[2023-08-27] MEDS: multivitamin therapeutic Tablet 1 TAB PO (09:16)
[2023-08-27] MEDS: lisinopril 10 mg Tablet 20 MG PO (09:16)
[2023-08-27] MEDS: nitrofurantoin SR (BID) 100 mg Capsule PO ×2 (09:17→18:28)
[2023-08-27] MEDS: ARIPiprazole 10 mg Tablet PO (09:17)
[2023-08-27] MEDS: thiamine 100 mg Tablet PO (09:17)
[2023-08-27] MEDS: chlorthalidone 25 mg Tablet 12.5 MG PO (09:17)
[2023-08-27] MEDS: sodium chloride 1 gm Tablet PO ×2 (09:17→18:28)
[2023-08-27] MEDS: amlodipine 10 mg Tablet PO (09:17)
[2023-08-27] MEDS: magnesium oxide 400 mg tablet PO ×2 (09:17→18:28)
[2023-08-27] MEDS: folic acid 1 mg Tablet PO (09:17)
[2023-08-27] MEDS: ARIPiprazole 10 mg Tablet 5 MG PO (11:34)
[2023-08-27] MEDS: iron complex forte Capsule 1 EACH PO (11:34)
[2023-08-27 14:00] VITALS: BP 121/72; PULSE 94; RESP 16; TEMP 36.8; O2SAT 100
[2023-08-27] MEDS: zolpidem 5 mg Tablet PO (20:03)
[2023-08-27 20:18] VITALS: BP 121/72; PULSE 113; RESP 17; TEMP 36.9; O2SAT 100
[2023-08-28 06:00] VITALS: BP 123/83; PULSE 95; RESP 16; TEMP 36.4; O2SAT 100
[2023-08-28] MEDS: ARIPiprazole 10 mg Tablet 15 MG PO (08:55)
[2023-08-28] MEDS: nitrofurantoin SR (BID) 100 mg Capsule PO ×2 (08:55→17:37)
[2023-08-28] MEDS: magnesium oxide 400 mg tablet PO ×2 (08:55→17:37)
[2023-08-28] MEDS: iron complex forte Capsule 1 EACH PO (08:56)
[2023-08-28] MEDS: thiamine 100 mg Tablet PO (08:56)
[2023-08-28] MEDS: amlodipine 10 mg Tablet PO (08:56)
[2023-08-28] MEDS: lisinopril 10 mg Tablet 20 MG PO (08:56)
[2023-08-28] MEDS: multivitamin therapeutic Tablet 1 TAB PO (08:56)
[2023-08-28] MEDS: sodium chloride 1 gm Tablet PO ×2 (08:56→17:37)
[2023-08-28] MEDS: chlorthalidone 25 mg Tablet 12.5 MG PO (08:56)
[2023-08-28] MEDS: folic acid 1 mg Tablet PO (08:57)
[2023-08-28 14:00] VITALS: BP 121/79; PULSE 103; RESP 14; TEMP 36.6; O2SAT 100
--- NOTE | 2023-08-28 17:14 | W.PM.NPUPNS ---
Subjective NPU Subjective: Patient presented today reporting that she was doing okay. We continue to discuss her delusional belief about scabies and she reports that there have been lots of people over the past years telling her that she did not have scabies and she does not know why she was so committed to believing that as the situation. She continues to take medication as prescribed and expressed concerns about comments she has made to staff about not continuing medications moving forward as we feel part of her ability to accept this conversation about a delusion is that she is responding well to the Abilify and denying any side effects. Mental Status Exam MSE Comments: This is a slender white female in hospital gown with limited grooming but adequate eye contact. Patches of hair on her head are missing with a couple of small pencil sized areas of redness. No abnormal movements except for mild psychomotor agitation. Cooperative with exam in mild distress. Speech was normal rate and volume. Mood described as a little better but reported managing her homesickness, affect anxious. Thought process organized. Thought content: Patient denies suicidal or homicidal ideations, there were no delusions reported but concern for somatic delusions noted, she denied auditory or visual hallucinations but might be having visual hallucinations of bugs and some tactile hallucinations. Attention and concentration were mostly intact and memory appeared mostly reliable but none were formally tested. She is alert and oriented x 2. Insight, judgment and impulse control are limited versus impaired. Vitals/I&O/Wt Last Vital Signs Temp 97.8 F 08/28/23 14:00 Pulse 103 H 08/28/23 14:00 Resp 14 08/28/23 14:00 BP 121/79 08/28/23 14:00 Pulse Ox 100 08/28/23 14:00 O2 Del Method Room Air 08/28/23 06:00 Data NPU 08/27/23 08:24 08/27/23 08:24 A&P Assessment and plan (1) Suicidal ideation: (2) Depression: (3) Alcohol abuse: (4) UTI (urinary tract infection): (5) Psychosis: Plan This is a 52-year-old white female experiencing severe distress related to physical symptoms and has a history of mental health issues. She is currently off psychiatric medication but is experiencing severe depression and anxiety. She has a history of hospitalizations for mental health issues and has experienced hallucinations now reporting a belief that she has scabies but has not been validated with concerns of these being hallucinations.. 1. Initiated Abilify 10 mg p.o. daily. Increased to 15 mg p.o. daily. 2. No signs of scabies will transfer to neuropsychiatric unit. 3. Initiate every 15 minute checks for safety on the unit. 4. Encourage sober living treatment after discharge at the highest level care to which she is willing to commit. 5. Obtain collateral information. Involuntary Hold Information 96 Hour Hold: 96 Hour Involuntary Admission: No Attestations NPU Medical Necessity Statement*: Inpatient hospitalization is medically necessary and the clinically appropriate intervention at this time. We will monitor medications and make changes as indicated. Likely length of stay 2-4 days. Coding Level of Care Code Acute Code for [facility] Diagnoses Suicidal ideation R45.851 Depression F32.A Alcohol abuse F10.10 UTI (urinary tract infection) N39.0 Psychosis F29
[2023-08-28] MEDS: zolpidem 5 mg Tablet PO (20:09)
[2023-08-28 21:00] VITALS: BP 131/67; PULSE 112; RESP 18; TEMP 36.6; O2SAT 97
[2023-08-29] MEDS: OLANZapine 5 mg ODT PO ×2 (01:19→23:33)
[2023-08-29 06:00] VITALS: BP 133/58; PULSE 91; RESP 16; TEMP 36.4; O2SAT 100
[2023-08-29] MEDS: lisinopril 10 mg Tablet 20 MG PO (07:59)
[2023-08-29] MEDS: folic acid 1 mg Tablet PO (07:59)
[2023-08-29] MEDS: chlorthalidone 25 mg Tablet 12.5 MG PO (07:59)
[2023-08-29] MEDS: sodium chloride 1 gm Tablet PO ×2 (08:00→18:02)
[2023-08-29] MEDS: magnesium oxide 400 mg tablet PO ×2 (08:00→18:02)
[2023-08-29] MEDS: multivitamin therapeutic Tablet 1 TAB PO (08:00)
[2023-08-29] MEDS: amlodipine 10 mg Tablet PO (08:00)
[2023-08-29] MEDS: ARIPiprazole 10 mg Tablet 15 MG PO (08:00)
[2023-08-29] MEDS: nitrofurantoin SR (BID) 100 mg Capsule PO ×2 (08:00→18:02)
[2023-08-29] MEDS: iron complex forte Capsule 1 EACH PO (08:00)
[2023-08-29] MEDS: thiamine 100 mg Tablet PO (08:00)
--- NOTE | 2023-08-29 12:02 | P.NPUPN_ITS ---
Subjective NPU 2 Subjective: Patient presented today reporting that she is doing okay. She is starting to be able to have conversations about the possibility that the scabies are not real but continues to fall back into that delusional thinking. At 1 point coming to the window and asking for a cream for her scabies on her head demonstrating still being in that mindset. She has excepted the continued stay reporting that she knows she needs to be here. She denies any side effects to the medication. Mental Status Exam 2 MSE Comments: This is a slender white female in hospital gown with limited grooming but adequate eye contact. Patches of hair on her head are missing with a couple of small pencil sized areas of redness. No abnormal movements except for mild psychomotor agitation. Cooperative with exam in mild distress. Speech was normal rate and volume. Mood described as a little better, affect anxious. Thought process organized. Thought content: Patient denies suicidal or homicidal ideations, there were no delusions reported but concern for somatic delusions noted, she denied auditory or visual hallucinations but might be having visual hallucinations of bugs and some tactile hallucinations. Attention and concentration were mostly intact and memory appeared mostly reliable but none were formally tested. She is alert and oriented x 2. Insight, judgment and impulse control are limited versus impaired. Vitals/I&O/Wt Last Vital Signs Temp 97.6 F 08/29/23 06:00 Pulse 91 08/29/23 06:00 Resp 16 08/29/23 06:00 BP 133/58 08/29/23 06:00 Pulse Ox 100 08/29/23 06:00 O2 Del Method Room Air 08/29/23 06:00 Data NPU 08/27/23 08:24 08/27/23 08:24 A&P Assessment and plan (1) Suicidal ideation: (2) Depression: (3) Alcohol abuse: (4) UTI (urinary tract infection): (5) Psychosis: Plan This is a 52-year-old white female experiencing severe distress related to physical symptoms and has a history of mental health issues. She is currently off psychiatric medication but is experiencing severe depression and anxiety. She has a history of hospitalizations for mental health issues and has experienced hallucinations now reporting a belief that she has scabies but has not been validated with concerns of these being hallucinations.. 1. Initiated Abilify 10 mg p.o. daily. Increased to 15 mg p.o. daily. 2. No signs of scabies will transfer to neuropsychiatric unit. 3. Initiate every 15 minute checks for safety on the unit. 4. Encourage sober living treatment after discharge at the highest level care to which she is willing to commit. 5. Obtain collateral information. Involuntary Hold Information 2 96 Hour Hold: 96 Hour Involuntary Admission: No Attestations NPU 2 Medical Necessity Statement*: Inpatient hospitalization is medically necessary and the clinically appropriate intervention at this time. We will monitor medications and make changes as indicated. Likely length of stay 2-4 days. Coding Level of Care Code Acute Code for [facility] Diagnoses Suicidal ideation R45.851 Depression F32.A Alcohol abuse F10.10 UTI (urinary tract infection) N39.0 Psychosis F29
[2023-08-29 14:00] VITALS: BP 132/83; PULSE 92; RESP 16; TEMP 36.6; O2SAT 98
[2023-08-29] MEDS: zolpidem 5 mg Tablet PO (19:57)
[2023-08-29 20:43] VITALS: BP 160/81; PULSE 102; RESP 16; TEMP 36.6; O2SAT 100
[2023-08-29] MEDS: trazodone 50 mg Tablet PO (23:33)
[2023-08-30] MEDS: haloperidol 5 mg Tablet PO (01:01)
--- NOTE | 2023-08-30 01:07 | PC.NURSE ---
Pt seen walking to dayroom and back to room, pt seemed very confused. When this CHECK PILOT went to pt room to check up on her, pt was frantically moving curtains up and down and stated Is he trying to get in my room? Pt was informed that no one was trying to get in and this was a safe place and we do rounds every 15 minutes to ensure pt safety. Pt then stated if i watch tv with the speakers on the wall will that bother you? I informed pt that there are no speakers in the rooms, however there is a vent on the ceiling. Pt then stated oh no this isn't going good, please don't tell anyone, I wanna go home, but they know don't they . Pt was informed that going home was a goal, but should focus on getting better before that. This CHECK PILOT administered pt PRN Haldol as directed. Pt was re directed back into bed and support was voiced. Will continue to monitor.
[2023-08-30 06:00] VITALS: BP 97/63; PULSE 101; RESP 18; TEMP 36.5; O2SAT 100
[2023-08-30] MEDS: OLANZapine 5 mg ODT PO (06:20)
[2023-08-30] MEDS: folic acid 1 mg Tablet PO (08:09)
[2023-08-30] MEDS: lisinopril 10 mg Tablet 20 MG PO (08:09)
[2023-08-30] MEDS: nitrofurantoin SR (BID) 100 mg Capsule PO ×2 (08:09→17:43)
[2023-08-30] MEDS: multivitamin therapeutic Tablet 1 TAB PO (08:10)
[2023-08-30] MEDS: iron complex forte Capsule 1 EACH PO (08:10)
[2023-08-30] MEDS: sodium chloride 1 gm Tablet PO ×2 (08:10→17:43)
[2023-08-30] MEDS: ARIPiprazole 10 mg Tablet 15 MG PO (08:10)
[2023-08-30] MEDS: chlorthalidone 25 mg Tablet 12.5 MG PO (08:10)
[2023-08-30] MEDS: amlodipine 10 mg Tablet PO (08:10)
[2023-08-30] MEDS: thiamine 100 mg Tablet PO (08:10)
[2023-08-30] MEDS: magnesium oxide 400 mg tablet PO ×2 (08:11→17:43)
[2023-08-30 14:00] VITALS: BP 103/63; PULSE 98; RESP 16; TEMP 36.9; O2SAT 100
--- NOTE | 2023-08-30 15:00 | P.NPUPN_ITS ---
Subjective NPU 2 Subjective: Patient presented today reporting that she is really wishing she could go home but hoping that she can get better. She had an episode the previous night where she was seemingly confused and being erratic in her behaviors. She endorses that that has happened occasionally and it embarrasses her. She reports that she feels that she is better in general and that it does not happen as often but it does happen occasionally. We discussed the risks benefits and alternatives of increasing her Abilify to 20 mg p.o. daily in the morning and she understood and agreed to proceed as is documented in this note. Mental Status Exam 2 MSE Comments: This is a slender white female in hospital gown with limited grooming but adequate eye contact. Patches of hair on her head are missing with a couple of small pencil sized areas of redness. No abnormal movements except for mild psychomotor agitation. Cooperative with exam in mild distress. Speech was normal rate and volume. Mood described as a little better, affect anxious. Thought process organized. Thought content: Patient denies suicidal or homicidal ideations, there were no delusions reported but concern for somatic delusions noted, she denied auditory or visual hallucinations but might be having visual hallucinations of bugs and some tactile hallucinations. Attention and concentration were mostly intact and memory appeared mostly reliable but none were formally tested. She is alert and oriented x 2. Insight, judgment and impulse control are limited versus impaired. Vitals/I&O/Wt Last Vital Signs Temp 98.5 F 08/30/23 14:00 Pulse 98 08/30/23 14:00 Resp 16 08/30/23 14:00 BP 103/63 08/30/23 14:00 Pulse Ox 100 08/30/23 14:00 O2 Del Method Room Air 08/30/23 14:00 Data NPU 08/27/23 08:24 08/27/23 08:24 Involuntary Hold Information 2 96 Hour Hold: 96 Hour Involuntary Admission: No Attestations NPU 2 Medical Necessity Statement*: Inpatient hospitalization is medically necessary and the clinically appropriate intervention at this time. We will monitor medications and make changes as indicated. Likely length of stay 2-4 days. Coding Level of Care Code Acute Code for [facility]
--- NOTE | 2023-08-30 20:00 | PC.NURSE ---
Pt standing in room looking out the windows nervously. Pt appears anxious but is cooperative. Pt denies SI/HI, but endorses AVH, specifically stating I think the hospital might be haunted because I feel little ghost children tugging on my shirt and touching my neck . Pt seems to have more trouble w/ paranoia / AVH at night rather than daytime. Support was voiced. Will continue to monitor.
[2023-08-30 20:40] VITALS: BP 141/74; PULSE 109; RESP 18; TEMP 36.6; O2SAT 100
[2023-08-30] MEDS: zolpidem 5 mg Tablet PO (21:32)
[2023-08-30] MEDS: trazodone 50 mg Tablet PO (21:32)
--- NOTE | 2023-08-30 21:57 | PC.NURSE ---
Pt paused her phone call and came up to the nurses desk and asked What is the name of the apartments here that I am staying in? Pt was informed that she is in the neuro-psych unit in the hospital and not in apartment building. Pt then stated oh that is why everyone is treating me funny then and then went back to her phone call. Will continue to monitor.
[2023-08-31] VITALS (8 sets, daily range): BP systolic 98–124; BP diastolic 61–79; PULSE 73–116; RESP 16–18; TEMP 36.3–36.6; O2SAT 97–99
[2023-08-31] MEDS: diphenhydrAMINE 50 mg Capsule PO ×2 (00:14→07:40)
[2023-08-31] MEDS: LORazepam 2 mg Tablet PO ×2 (00:14→07:40)
[2023-08-31] MEDS: haloperidol 5 mg Tablet PO ×2 (00:14→07:40)
--- NOTE | 2023-08-31 00:21 | PC.NURSE ---
Pt was given an oral B-52 (Ativan 2mg, Benadryl 50mg & Haldol 5mg) for continued observed behaviors of AVH / paranoia. During a round, pt was found undressed in her room w/ a blanket wrapped around her, when asked why she didn't have her clothes on pt stated my is coming up here to bring me some clothes, I just got off the phone w/ him and he is also bringing my minifridge . Pt was given new scrubs to put on and informed that her wasn't coming up to the unit and she needed to wear the green scrubs in which pt responded Oh my, I forget this was the hospital and not my apartment again, so I guess I can't have the minifridge then . Later on Pt began pacing from her room to the dayroom, pt was tearful and appeared anxious and stated she thought there was someone trying to get in from the backdoor pt was informed that the unit is secure / locked and no one can get in. Pt then stated well I don't know what the neighbors will do without me . After pt was given oral meds, and directed to her room, pt laid down in bed. Will continue to monitor.
[2023-08-31] MEDS: ziprasidone hcl 20 mg Capsule PO (04:22)
--- NOTE | 2023-08-31 04:27 | PC.NURSE ---
Patient Behavior At approximately 0350 this nurse was notified that this patient had damaged the HVAC unit in her room. The metal control cover had been bent outwardly and there was a hole where a screw belonged. Notified Security and Wood Tank Builder notified and present. Searched room and wanded the patient with a metal detector and could not find a screw. When the patient was asked if she swallowed the screw she denied it and said do patients really swallow dresses? . Patient was moved to another room and that room was locked. Notified Dr. Hoang and was given an order for Gaston, see MAR. No further orders.
[2023-08-31] MEDS: amlodipine 10 mg Tablet PO (07:35)
[2023-08-31] MEDS: folic acid 1 mg Tablet PO (07:35)
[2023-08-31] MEDS: iron complex forte Capsule 1 EACH PO (07:36)
[2023-08-31] MEDS: magnesium oxide 400 mg tablet PO ×2 (07:36→19:46)
[2023-08-31] MEDS: multivitamin therapeutic Tablet 1 TAB PO (07:36)
[2023-08-31] MEDS: lisinopril 10 mg Tablet 20 MG PO ×2 (07:37→07:39)
[2023-08-31] MEDS: nitrofurantoin SR (BID) 100 mg Capsule PO ×2 (07:37→19:46)
[2023-08-31] MEDS: sodium chloride 1 gm Tablet PO ×2 (07:39→19:46)
[2023-08-31] MEDS: thiamine 100 mg Tablet PO (07:39)
[2023-08-31] MEDS: chlorthalidone 25 mg Tablet 12.5 MG PO (07:40)
[2023-08-31] MEDS: ARIPiprazole 10 mg Tablet 15 MG PO (07:40)
[2023-08-31] MEDS: OLANZapine 5 mg ODT PO ×2 (09:04→20:42)
--- NOTE | 2023-08-31 09:22 | P.NPUPN_ITS ---
Subjective NPU 2 Subjective: Patient presented today being in a essentially delirious state without purposeful communication and conversation. She mostly wanders at the unit aimlessly doing strange things like wiping the painting, wandering into different rooms and requiring significant interventions of medications and up into seclusion. Mental Status Exam 2 MSE Comments: This is a slender white female in hospital scrubs with limited grooming and eye contact. Patches of hair on her head are missing with a couple of small pencil sized areas of redness. No abnormal movements except for significant psychomotor agitation and significant aimless and purposeless movements and actions. Cooperative with exam in moderate to extreme distress. Speech was normal rate and volume. Mood not described, affect bizarre. Thought process disorganized. Thought content: Patient did not answer questions about lethality and did not have self injurious actions but at times was agitated towards others, there were no delusions reported but concern paranoia persecutory delusions versus just delirium noted, she denied auditory or visual hallucinations but appeared to be attending to internal stimuli. Attention and concentration were impaired t and memory appeared unreliable but none were formally tested. She is alert and oriented to person. Insight, judgment and impulse control are impaired. Vitals/I&O/Wt Last Vital Signs Temp 97.3 F L 08/31/23 14:00 Pulse 73 08/31/23 14:00 Resp 16 08/31/23 14:00 BP 96/61 08/31/23 14:00 Pulse Ox 99 08/31/23 14:00 O2 Del Method Room Air 08/31/23 14:00 Weight last 48 hrs Weight 56.699 kg Data NPU 08/31/23 13:59 08/31/23 13:59 A&P Assessment and plan (1) Suicidal ideation: (2) Depression: (3) Alcohol abuse: (4) UTI (urinary tract infection): (5) Psychosis: Plan This is a 52-year-old white female experiencing severe distress related to physical symptoms and has a history of mental health issues. She is currently off psychiatric medication but is experiencing severe depression and anxiety. She has a history of hospitalizations for mental health issues and has experienced hallucinations now reporting a belief that she has scabies but has not been validated with concerns of these being hallucinations.. 1. Initiated Abilify 10 mg p.o. daily. Increased to 15 mg p.o. daily. Decreased Abilify back to 10 mg p.o. daily and added Invega 3 mg p.o. daily. 2. Encourage individual, group and milieu therapies. 3. Initiate every 15 minute checks for safety on the unit. 4. Encourage sober living treatment after discharge at the highest level care to which she is willing to commit. 5. Patient now having altered mental status/delirium/psychosis which is likely a complex interplay of her delusional illness, her alcohol withdrawal, and possibly her medical comorbidities like her anemia. Placed patient on a 96-hour hold and may need a 21-day hold if she does not improve more rapidly. Involuntary Hold Information 2 96 Hour Hold: 96 Hour Involuntary Admission: No Attestations NPU 2 Medical Necessity Statement*: Inpatient hospitalization is medically necessary and the clinically appropriate intervention at this time. We will monitor medications and make changes as indicated. Likely length of stay 7-10 days. May need a 21-day hold. Coding Level of Care Code Acute Code for [facility] Diagnoses Suicidal ideation R45.851 Depression F32.A Alcohol abuse F10.10 UTI (urinary tract infection) N39.0 Psychosis F29
[2023-08-31] MEDS: nicotine 4 mg lozenge MUCOUS MEM (09:24)
--- NOTE | 2023-08-31 10:15 | PC.NURSE ---
Patient Behavior Patient pacing, pushing on doors, wondering in and out of patient rooms. Patient mumbling to self, and gets very agitated with staff when staff attempts to redirect behavior. Patient makes statements like bill needs his boots, i am just looking for shoes. Patient asked about taking a field trip across the street and mumbled that there were no permission slips.
[2023-08-31] MEDS: benztropine 1 mg Tablet PO (10:36)
[2023-08-31] MEDS: paliperidone ER 3 mg Tablet PO (10:48)
--- NOTE | 2023-08-31 13:29 | PC.NURSE ---
pt given a sports bra to wear pt continues to take off her top and walk in the hallways unclothed. pt going into other patients rooms looking for her purse and a bottle of alcohol. pt calling staff franny's an to go to [facility].
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
[2023-08-31 14:20] LABS: Hematocrit 27.2 % (36-47); Mean Corpuscular HGB Conc 28.7 g/dL (30-55); Mean Corpuscular Hemoglobin 20.7 pg (27-33); Mean Corpuscular Volume 72.1 fl (85-98); Mean Platelet Volume 10.2 fL (7.4-10.4); Platelet Count 374 10^3/cmm (157-399); Red Blood Count 3.77 10^6/uL (3.85-5.65); Red Cell Distribution Width 21.7 % (12.1-15.1); White Blood Count 8.67 10^3/uL (3.29-11.43)
--- NOTE | 2023-08-31 14:25 | PC.NURSE ---
patient note While in the [facility] waiting for lab to draw her blood, patient was looking at the floor and touching it with her hand. When asked what she was looking for, patient states she is looking for a kidney. Patient then walked into her room to let lab draw her blood.
[2023-08-31 14:29] LABS: Amphetamines Screen Urine Negative (Negative); Barbiturates Screen Urine Positive (Negative); Benzodiazepines Screen Urine Positive (Negative); Cocaine Screen Urine Negative (Negative); Opiate Screen Urine Negative (Negative); PCP Screen Urine Negative (Negative); THC Screen Urine Negative (Negative)
[2023-08-31 14:34] LABS: Absolute Eosinophils 0.3 10^3/cmm (0.0-0.7); Absolute Segmented Neutrophil 4.8 10/cmm (1.6-7.1); Anisocytosis 1+; Band Neutrophils Absolute 0.1 10^3/cmm (0.0-1.2); Eosinophils 3 %; Hypochromasia 1+; Lymphocytes 32 %; Lymphocytes Absolute 2.8 10^3/cmm (1.2-3.4); Monocytes Absolute 0.8 10^3/cmm (0.1-0.6); Poikilocytosis Trace; Segmented Neutrophils 55 %; Total Cells Counted 100 (0-100)
[2023-08-31 14:35] LABS: Absolute Neutrophil 4.9 10^3/cmm (1.4-6.5); Platelet Estimate Normal (Normal)
[2023-08-31 14:39] LABS: Anion Gap 15.5 (5-19); Blood Urea Nitrogen 20 mg/dL (6-20); Calcium 10.1 mg/dL (8.5-10.5); Carbon Dioxide 25 mmol/L (22-29); Chloride 98 mmol/L (98-107); Glomerular Filtration Rate 58.7 mL/min (90-130); Glucose 90 mg/dL (65-115); Osmolality Calculated 280 mOsm/kg (285-295); Potassium 4.5 mmol/L (3.5-5.1); Sodium 134 mmol/L (136-145)
[2023-08-31] MEDS: LORazepam 2 mg/mL INJ 1 mL IM ×2 (17:31→22:28)
[2023-08-31] MEDS: diphenhydrAMINE 50 mg/mL SDV 1mL IM ×2 (17:32→22:28)
[2023-08-31] MEDS: haloperidol inj 5 mg/mL INJ 1 mL IM ×2 (17:32→22:28)
[2023-08-31 17:58] LABS: Add Urine Microscopic? NO; Charge for UA Resulting for Rev
[2023-08-31 18:03] LABS: Bilirubin Urine Neg (Negative); Blood Urine Neg (Negative); Glucose Urine UA Norm (Normal); Ketones Urine Negative (Negative); Leukocyte Esterase Urine Negative (Negative); Nitrate Urine Negative (Negative); Protein Urine Neg (Negative); Specific Gravity, Urine 1.015 (1.005-1.030); Urine Appearance Clear (CLEAR); Urine Color Dark Yellow (Yellow); Urobilinogen Urine Norm (Negative); pH Urine 5 (5-7)
[2023-08-31 18:11] LABS: Alanine Aminotransferase 80 U/L (0-33); Albumin Level 3.8 g/dL (3.5-5.2); Alkaline Phosphatase 144 U/L (35-105); Aspartate Amino Transferase 68 U/L (0-32); Globulin 4.3 g/dL (1.3-4.6); Total Bilirubin 0.3 mg/dL (0.15-1.2); Total Protein 8.1 g/dL (6.6-8.7)
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
--- NOTE | 2023-08-31 18:57 | CTR_ITS ---
PROCEDURE INFORMATION: Exam: CT Head Without Contrast Exam date and time: 08/31/2023 7:14 PM Age: 52 years old Clinical indication: Injury or trauma; Blunt trauma (contusions or hematomas); Patient HX: Fall striking head on floor. ; Additional info: Patient hit head TECHNIQUE: Imaging protocol: Computed tomography of the head without contrast. Radiation optimization: All CT scans at this facility use at least one of these dose optimization techniques: automated exposure control; mA and/or kV adjustment per patient size (includes targeted exams where dose is matched to clinical indication); or iterative reconstruction. COMPARISON: CT head wo con* [id number] 12/16/2019 2:11 PM RADIATION DOSE METRICS: Total DLP (mGy-cm): 1086.88 FINDINGS: Brain: Normal. No hemorrhage. Unremarkable white matter. No mass effect. Cerebral ventricles: No ventriculomegaly. Paranasal sinuses: Visualized sinuses are unremarkable. No fluid levels. Mastoid air cells: Visualized mastoid air cells are well aerated. Bones/joints: Unremarkable. No acute fracture. Soft tissues: Unremarkable. CT/CT head wo con* [id number] IMPRESSION: No acute intracranial abnormality.
--- NOTE | 2023-08-31 19:12 | PC.NURSE ---
@1845 called to seclusion room by emergency call light and one on one sitter calling for help. upon arrival and entering room pt was on the floor crawling, was told pt fell forward onto floor. staff noticed blood smeared on floor pt stating she was ok at that time. pt then sat on her bed pt chin red and nose has bloody discharge but not actively bleeding. Notified CT ordered with out contrast, notified house mother of incident. . vitals signs taken and charted by MANGLE TENDER. Hospitalist Nocturnist Physician and this senior energy consultant sat with pt to ensure pt safety pt continued to talk about needing to go get the baby and take care of them. pt stood up confirmed dizziness upon standing when asked by staff. multiple requests for pt sit down for her saftey unsuccessful.pt walked down hallway with staff accompanying her. pt escorted to CT by , Rn and one on one sitter.
[2023-08-31] MEDS: zolpidem 5 mg Tablet PO (20:42)
--- NOTE | 2023-08-31 21:02 | PC.NURSE ---
PT CONTINUES SECLUSION DUE TO OUTBURST AND THREATENING STAFF AND OTHERS. PT IS OBBSERVED CRAWLING ON FLOOR AND ASKING FOR A BENSON TO PUT THINGS IN. PT IS OBSERVED ACTING IF SHE IS SMOKING. RN TO SECLUSION TO GIVE MEDICATIONS FOR BEDTIME AND INCREASED ANXIETY. PT WAS ADMINISTERED ZYDIS 5 MG ORDERED FOR CONTIUED YELLING OUT FOR SUNDEEP. MOBILE HOME INSTALLER'S IN SECLUSION TO COMPLETE VITALS DUE TO RECENT FALL AND MEDICATION ADMINISTRATION. PT IS UNABLE TO COMPLETE TEMPATURE DUE TO PT SUCKING ON THE PROBE. AT 2029 VS WERE 107/67, HR 110, 99% ON RA AND RR 18. RN TO SECLUSION FOR FACE TO FACE AND SEE IF PT WAS READY TO GO TO BED. PT CONTINUED TO MAKE BIZARRE STATEMENTS AND TELL THIS RN NO NO YOU NEED TO GET SUNDEEP AND TAKE ME TO THE STORE. PT THEN BEGAN REACHING TOWARDS RN AND YELLING, SECLUSION WAS NO TERMINATED AT THAT POINT AT 2049. PT IS UNABLE TO COMPLETE VERBAL ASSESSMENT, WHEN ASKED IF SHE IS HAVING SUICIDAL THOUGHTS PT STATES I GUESS IF YOU CAN GIVE ME THE BENSON. PT IS UNABLE TO COMPREHEND WHAT IS BEING ASKED OF HER. PT DOES DENY PAIN WHEN ASKED IF SHE IS HURTING. THERE ARE NO S/S OF PAIN OBSERVED AT THIS TIME. PT IS OBSERVED SPEAKING TO UNSEEN OTHERS AND POINTING TO DOGS AND CATS, PT CONTINUES TO HAVE AVH AT THIS TIME. PT CONTINUES TO SIT IN FLOOR PICKING AT THE FLOOR AND PICKING THINGS UP THAT ARE CLEARLY NOT THERE. SITTER IS PRESENT FOR SECLUSION AND ONE ON ONE FOR PT SAFETY. PT DOES TAKE MEDICATIONS WILLINGLY AND WITHOUT ISSUE. SUPPORT WAS VOICED.
--- NOTE | 2023-08-31 23:02 | PC.NURSE ---
AT 2122 PT WAS IN SECLUSION SITTING ON KNEES PICKING UP UNSEEN OBJECTS OUT OF FLOOR HAVING VISUAL HALLUCINATIONS. PT WAS BEING OBSERVED BY ONE ON ONE PSA STAFF DUE TO SECLUSION. RN HAD PT VISUALIZED ON CAMERA. PT WAS SITTING ON KNEES IN FLOOR AND PT APPEARED TO FALL ASLEEP BRIEFLY AND FELL OVER TO HER RIGHT SIDE AND HIT THE RIGHT SIDE OF HEAD. RN AND STAFF RESPONDED IMMEDIATELY. RN ASSESSED PTS HEAD NO REDNESS OR BUMP FELT AT THAT TIME AND NO OTHER INJURIES WERE OBSERVED. WHEN ASKED IF HER HEAD WAS HURTING PT STATED NOT NO MORE. NO S/S OF PAIN WERE OBSERVED AT THAT TIME. PT VITALS WERE OBTAINED AND ARE FOLLOWS:BP 119/78 HR 116, RR 22 SPO2 99% ON RA. PT WAS ASSISTED TO WHEELCHAIR BY 2 STAFF MEMBERS AND TAKEN TO PT ROOM IN [facility] WHICH IS CLOSE TO THE NURSES STATION. ONE ON ONE OBSERVATION CONTINUED DUE TO BEHAVIORS AND A PREVIOUS FALL LAST SHIFT. PT LAID DOWN BRIEFLY BUT CONTINUED TO YELL OUT AND HALLUCINATE AND WAS OBSERVED RESPONDING TO EXTERNAL STIMULI. PT REQUIRED MULTIPLE STAFF ASSIST TO REMAIN IN BED AND TO BE REDIRECTED. PT CONTINUED TO REQUIRE 2 STAFF TO MAINTAIN PTS SAFETY. PT FALL RISK SCORE IS 55 AND PT REMAINS A HIGH FALL RISK DUE TO MEDICATIONS, PSYCHOSIS AND HALLUCINATIONS. DR. ERNST WAS NOTIFIED OF FALL AT [address] RESULTS FROM PREVIOUS FALL WHICH WAS UNREMARKABLE. NO NEW ORDERS WERE RECEIVED. DIRECTOR Anuj HERNANDEZ WAS ALSO NOTIFIED OF FALL WELL SOAP BOILER. PT WAS GIVEN A SNACK AND DRINK. PT DRANK APPROXIMATELY 120 MLS OF AND THEN STARTED TO FALL ASLEEP AND TWITCHED, WAKING HER SELF UP AND SPILLING THE DRINK, PT DID EAT HALF OF THE COOKIE BUT DUE TO CONTINUED HALLUCINATIONS WAS PICKING IT APART AND PLACING PIECES OF IT ON VARIOUS PLACES ON THE BED. PTS BED WAS SWITCHED TO [facility] AND PLACED CLOSE TO THE WALL. PT CONTINUED TO YELL OUT AND THEN STARTED PUNCHING AND HITTING AT STAFF AT APPROXIMATELY 2200. PT WAS REDIRECTED MULTIPLE TIMES, PT WAS ABLE TO STOP FOR BRIEF PERIODS OF TIME THEN WOULD CONTINUE TO ESCALATE AND BECAME COMBATIVE AGAIN WITH STAFF. DR. ERNST WAS NOTIFIED AGAIN DUE TO BEHAVIORS AND TO GIVE THE OKAY TO GIVE MORE MEDICATIONS IF NEEDED DUE TO PTS INABILITY TO CALM AND INCREASED AGGRESSION. DR. ERNST APPROVED TO GIVE 2 MG ATIVAN, 50 MG OF BENADRYL AND 5 MG OF HALDOL. AT 2228 THIS RN GAVE BENADRYL 50 MG TO RIGHT DELTOID AND COSTUME SHOP MANAGER GAVE ATIVAN 2 MG AND HALDOL 5 MG TO LEFT DELTOID. PSA WAS ASSIGNED TO DO ROUNDING ON MACIAS AND NETWORK PROGRAMMER WAS ASSIGNED TO ONE ON ONE DUE TO HAVING TO ASSIST PT BACK IN BED AND REDIRECT HER CONTINUOUSLY. PTS VITALS WERE OBTAINED FOR A SECOND TIME AT 2302 AND ARE FOLLOWS: BP 124/79, HR 95, RR 18, SPO2 98% ON RA. NERUO EXAM ATTEMPTED BUT DIFFICULT TO EVALUATE DUE TO PT IS UNABLE TO FOLLOW DIRECTIONS AND WEAK FROM MEDICATIONS. PUPILS ARE EQUAL AT .4 MM AND REACTIVE TO LIGHT BUT NOTED TO BE SLUGGISH. AT 2318 PT DID FALL ASLEEP AND IS CURRENTLY SNORING. ONE ON ONE CONTINUED WITH PSA TAKING NETWORK PROGRAMMER'S PLACE UNTIL PT WAKES UP AND RN WILL EVALUATE PT AND NEEDS AT THAT TIME.
--- NOTE | 2023-09-01 02:04 | PC.NURSE ---
PT IN BED RESTING WITH EYES CLOSED. YELLS OUT IN HER SLEEP, REACHES UP IN THE AIR TO GRAB AT UNSEEN OBJECTS. SITTER REMAINS AT BEDSIDE.
[2023-09-01] MEDS: benztropine 1 mg Tablet PO (05:23)
[2023-09-01] MEDS: hyDROXYzine 25 mg Capsule 50 MG PO (05:23)
[2023-09-01] MEDS: haloperidol 5 mg Tablet PO (05:24)
--- NOTE | 2023-09-01 05:30 | PC.NURSE ---
PT SLEPT APPROXIMATELY 3-4 HOURS. PT WOKE UP AT 0505 AM AND NEEDED TO GO TO THE BATHROOM. PT WAS UNSTEADY ON FEET, 2 STAFF ASSIST TO THE BATHROOM. PT HAD AN INCONTINENCE EPISODE IN HER BED, SO BED WAS WIPED DOWN AND NEW LINENS APPLIED WITH NEW SCRUBS FOR PT. PT WAS GIVEN A DRINK. PT THEN BEGAN TO GET AGGITATED AND STARTED SWINGING ON STAFF, THEN GOT UP TO WALK AND WAS OBSERVED TO BE UNSTEADY AND WAS ABOUT TO FALL. STAFF ATTEMPTED TO ASSIST HER DOWN THE MACIAS WHEN PT BEGAN TO HIT AT STAFF AND YELL GET OFF ME GET OFF ME. PT WAS ASSISTED BACK DOWN TO HER ROOM AND WAS ASSISTED TO BED. PT GOT UP AGAIN AND REQUESTED A SNACK. PT WAS GIVEN CHIPS AND MORE TO DRINK. PT CONTINUES TO BE DELUSIONAL AND BELIEVES SHE IS SMOKING. PT REORIENTATED WITH LITTLE RESOLVE. PT CONTINUED TO GET MORE AGITATED SO RN ADMINISTERED 5 MG OF HALDOL PO, VISTARIL 50 MG PO AND COGENTIN 1 MG ORDERED. SUPPORT WAS VOICED. PT WAS ASSISTED BACK DOWN TO THE BED TO LAY DOWN AND REST. SITTER REMAINS AT BEDSIDE FOR CONTINUOUS OBSERVATION TO ENSURE SAFETY OF PT.
[2023-09-01 06:00] VITALS: BP 111/71; PULSE 80; RESP 16; O2SAT 98; BMI 21.4
[2023-09-01] MEDS: nitrofurantoin SR (BID) 100 mg Capsule PO ×2 (08:26→18:44)
[2023-09-01] MEDS: magnesium oxide 400 mg tablet PO ×2 (08:26→18:23)
[2023-09-01] MEDS: folic acid 1 mg Tablet PO (08:27)
[2023-09-01] MEDS: amlodipine 10 mg Tablet PO (08:27)
[2023-09-01] MEDS: lisinopril 10 mg Tablet 20 MG PO (08:27)
[2023-09-01] MEDS: multivitamin therapeutic Tablet 1 TAB PO (08:27)
[2023-09-01] MEDS: chlorthalidone 25 mg Tablet 12.5 MG PO (08:27)
[2023-09-01] MEDS: ARIPiprazole 10 mg Tablet PO (08:27)
[2023-09-01] MEDS: paliperidone ER 3 mg Tablet PO ×2 (08:27→11:56)
[2023-09-01] MEDS: sodium chloride 1 gm Tablet PO ×2 (08:28→18:44)
[2023-09-01] MEDS: iron complex forte Capsule 1 EACH PO (08:28)
[2023-09-01] MEDS: nicotine 4 mg lozenge MUCOUS MEM (08:28)
[2023-09-01] MEDS: OLANZapine 5 mg ODT PO (08:29)
[2023-09-01] MEDS: thiamine 100 mg Tablet PO (08:29)
--- NOTE | 2023-09-01 09:31 | P.NPUPN_ITS ---
Subjective NPU 2 Subjective: Patient presented today reporting that she is feeling a little better. Today was the first day in a couple of days that she has been able to be calm or redirected. Staff reports of aimless and purposeless behavior for the past 2 days but then patient spent much of the day sleeping and was much better when she woke up. She denied any issues with the medication. Mental Status Exam 2 MSE Comments: This is a slender white female in hospital scrubs with limited grooming and eye contact. Patches of hair on her head are missing with a couple of small pencil sized areas of redness. No abnormal movements except for significant psychomotor retardation. Mostly uncooperative with exam in no acute distress. Speech was very limited and decreased rate and volume.. Mood not described, affect subdued. Thought process more organized. Thought content: Patient did not answer questions about lethality and did not have self self directed aggression or any aggression towards others, there were no delusions reported but concern paranoia persecutory delusions, she denied auditory or visual hallucinations but appeared to be attending to internal stimuli much less today. Attention and concentration were improving and memory appeared unreliable but none were formally tested. She is alert and oriented to person. Insight, judgment and impulse control are impaired. Vitals/I&O/Wt Last Vital Signs Temp 97.8 F 08/31/23 19:00 Pulse 80 09/01/23 06:00 Resp 16 09/01/23 06:00 BP 111/71 09/01/23 06:00 Pulse Ox 98 09/01/23 06:00 O2 Del Method Room Air 09/01/23 06:00 Weight last 48 hrs Weight 56.699 kg Data NPU 09/02/23 08:04 09/02/23 08:04 A&P Assessment and plan (1) Suicidal ideation: (2) Depression: (3) Alcohol abuse: (4) UTI (urinary tract infection): (5) Psychosis: Plan This is a 52-year-old white female experiencing severe distress related to physical symptoms and has a history of mental health issues. She is currently off psychiatric medication but is experiencing severe depression and anxiety. She has a history of hospitalizations for mental health issues and has experienced hallucinations now reporting a belief that she has scabies but has not been validated with concerns of these being hallucinations.. 1. Initiated Abilify 10 mg p.o. daily. Increased to 15 mg p.o. daily. Decreased Abilify back to 10 mg p.o. daily and added Invega 3 mg p.o. daily. Increased Invega to 6 mg p.o. daily. 2. Encourage individual, group and milieu therapies. 3. Initiate every 15 minute checks for safety on the unit. 4. Encourage sober living treatment after discharge at the highest level care to which she is willing to commit. 5. Patient now having altered mental status/delirium/psychosis which is likely a complex interplay of her delusional illness, her alcohol withdrawal, and possibly her medical comorbidities like her anemia. Placed patient on a 96-hour hold. Patient placed on a 21-day hold 08/30/2023. Involuntary Hold Information 2 96 Hour Hold: 96 Hour Involuntary Admission: No Attestations NPU 2 Medical Necessity Statement*: Inpatient hospitalization is medically necessary and the clinically appropriate intervention at this time. We will monitor medications and make changes as indicated. Likely length of stay 7-10 days. May need a 21-day hold. Coding Level of Care Code Acute Code for [facility] Fwd Diagnoses Suicidal ideation R45.851 Depression F32.A Alcohol abuse F10.10 UTI (urinary tract infection) N39.0 Psychosis F29
--- NOTE | 2023-09-01 10:51 | PC.NURSE ---
PT CURRENTLY APPEARS TO BE RESPONDING TO INTERNAL STIMULI. PT IS NOT STABLE ON HER FEET AND IS REQUIRING ASSISTANCE WHEN WALKING. PT IS IRRITABLE AND RESISTIVE TO CARE. PT CONTINUES TO HAVE 1:1 SITTER FOR SAFETY PRECAUTIONS.
[2023-09-01 14:00] VITALS: BP 109/70; PULSE 102; RESP 16; O2SAT 100
[2023-09-01 19:59] VITALS: BP 100/63; PULSE 84; RESP 16; TEMP 36.5; O2SAT 100
--- NOTE | 2023-09-01 20:22 | PC.NURSE ---
IN BED RESTING WITH SITTER AT BEDSIDE NO DISTRESS NOTED. NO S/S OF PAIN OBSERVED AT THIS TIME. SPEECH IS DELAYED BUT PT IS OBSERVED TO BE TIRED AND IS STILL IN NEED OF REST. PT DOES NOT EXHIBIT ANY S/S OF DEPRESSION OR ANXIETY AT THIS TIME. PT REQUIRES 1-2 ASSIST WHEN GOING TO THE BATHROOM AND AMBULATING LONG DISTANCES. SUPPORT WAS VOICED.
[2023-09-01] MEDS: zolpidem 5 mg Tablet PO (20:35)
--- NOTE | 2023-09-02 04:52 | PC.NURSE ---
PT HAS SLEPT APPROXIMATELY 10 HOURS THIS SHIFT.
[2023-09-02 06:00] VITALS: BP 97/57; PULSE 76; RESP 16; TEMP 36.3; O2SAT 96
[2023-09-02 08:18] LABS: Hematocrit 26.4 % (36-47); Mean Corpuscular HGB Conc 28.4 g/dL (30-55); Mean Corpuscular Hemoglobin 20.2 pg (27-33); Mean Corpuscular Volume 71.2 fl (85-98); Platelet Count 408 10^3/cmm (157-399); Red Blood Count 3.71 10^6/uL (3.85-5.65); Red Cell Distribution Width 21.7 % (12.1-15.1); White Blood Count 6.82 10^3/uL (3.29-11.43)
[2023-09-02] MEDS: thiamine 100 mg Tablet PO (08:23)
[2023-09-02] MEDS: iron complex forte Capsule 1 EACH PO (08:23)
[2023-09-02] MEDS: amlodipine 10 mg Tablet PO (08:23)
[2023-09-02] MEDS: folic acid 1 mg Tablet PO (08:23)
[2023-09-02] MEDS: paliperidone ER 6 mg Tablet PO (08:23)
[2023-09-02] MEDS: magnesium oxide 400 mg tablet PO ×2 (08:23→18:10)
[2023-09-02] MEDS: nitrofurantoin SR (BID) 100 mg Capsule PO ×2 (08:23→18:10)
[2023-09-02] MEDS: multivitamin therapeutic Tablet 1 TAB PO (08:23)
[2023-09-02] MEDS: chlorthalidone 25 mg Tablet 12.5 MG PO (08:24)
[2023-09-02] MEDS: ARIPiprazole 10 mg Tablet PO (08:25)
[2023-09-02] MEDS: sodium chloride 1 gm Tablet PO ×2 (08:25→18:10)
[2023-09-02] MEDS: lisinopril 20 mg Tablet PO (08:35)
[2023-09-02 08:38] LABS: Alanine Aminotransferase 57 U/L (0-33); Albumin Level 3.2 g/dL (3.5-5.2); Alkaline Phosphatase 114 U/L (35-105); Anion Gap 12.2 (5-19); Aspartate Amino Transferase 55 U/L (0-32); Blood Urea Nitrogen 19 mg/dL (6-20); Calcium 9.4 mg/dL (8.5-10.5); Carbon Dioxide 25 mmol/L (22-29); Chloride 97 mmol/L (98-107); Glomerular Filtration Rate 88.6 mL/min (90-130); Glucose 97 mg/dL (65-115); Osmolality Calculated 272 mOsm/kg (285-295); Potassium 4.2 mmol/L (3.5-5.1); Sodium 130 mmol/L (136-145); Total Bilirubin 0.2 mg/dL (0.15-1.2); Total Protein 7.2 g/dL (6.6-8.7)
--- NOTE | 2023-09-02 08:51 | P.NPUPN_ITS ---
Subjective NPU 2 Subjective: Patient presented today reporting that she was feeling better. She reports having limited recollection of the last 48 hours which were pretty challenging. She reports to staff told her about the as needed medications she needed and her aimless and purposeless behavior. She reports that she is sorry if she did anything that was unkind or anything but is hopeful that things will get better from here. She denies any side effects to the medication and we discussed the possibility of this 96-hour hold becoming a 21-day hold. Mental Status Exam 2 MSE Comments: This is a slender white female in hospital scrubs with limited grooming and eye contact. Patches of hair on her head are missing with a couple of small pencil sized areas of redness. No abnormal movements except for significant psychomotor retardation. Mostly uncooperative with exam in no acute distress. Speech was very limited and decreased rate and volume. Mood not described, affect subdued. Thought process more organized. Thought content: Patient did not answer questions about lethality and did not have self self directed aggression or any aggression towards others, there were no delusions reported but concern paranoia persecutory delusions, she denied auditory or visual hallucinations but appeared to be attending to internal stimuli much less today. Attention and concentration were improving and memory appeared unreliable but none were formally tested. She is alert and oriented to person. Insight, judgment and impulse control are impaired. Vitals/I&O/Wt Last Vital Signs Temp 97.4 F L 09/02/23 06:00 Pulse 76 09/02/23 06:00 Resp 16 09/02/23 06:00 BP 97/57 09/02/23 06:00 Pulse Ox 96 09/02/23 06:00 O2 Del Method Room Air 09/02/23 06:00 09/01/23 09/02/23 09/02/23 22:59 06:59 14:59 Intake Total 512 / 512 Output Total 2 / 2 Balance 510 / 510 Weight last 48 hrs Weight 56.699 kg Data NPU 09/02/23 08:04 09/02/23 08:04 A&P Assessment and plan (1) Suicidal ideation: (2) Depression: (3) Alcohol abuse: (4) UTI (urinary tract infection): (5) Psychosis: Plan This is a 52-year-old white female experiencing severe distress related to physical symptoms and has a history of mental health issues. She is currently off psychiatric medication but is experiencing severe depression and anxiety. She has a history of hospitalizations for mental health issues and has experienced hallucinations now reporting a belief that she has scabies but has not been validated with concerns of these being hallucinations.. 1. Initiated Abilify 10 mg p.o. daily. Increased to 15 mg p.o. daily. Decreased Abilify back to 10 mg p.o. daily and added Invega 3 mg p.o. daily. Increased Invega to 6 mg p.o. daily. 2. Encourage individual, group and milieu therapies. 3. Initiate every 15 minute checks for safety on the unit. 4. Encourage sober living treatment after discharge at the highest level care to which she is willing to commit. 5. Patient now having altered mental status/delirium/psychosis which is likely a complex interplay of her delusional illness, her alcohol withdrawal, and possibly her medical comorbidities like her anemia. Placed patient on a 96-hour hold. Patient placed on a 21-day hold 08/30/2023. Involuntary Hold Information 2 96 Hour Hold: 96 Hour Involuntary Admission: No Attestations NPU 2 Medical Necessity Statement*: Inpatient hospitalization is medically necessary and the clinically appropriate intervention at this time. We will monitor medications and make changes as indicated. Likely length of stay 7-10 days. May need a 21-day hold. Coding Level of Care Code Acute Code for [facility] Fwd Diagnoses Suicidal ideation R45.851 Depression F32.A Alcohol abuse F10.10 UTI (urinary tract infection) N39.0 Psychosis F29
[2023-09-02 09:06] LABS: Absolute Eosinophils 0.3 10^3/cmm (0.0-0.7); Band Neutrophils Absolute 0.1 10^3/cmm (0.0-1.2); Basophils Absolute 0.1 10^3/cmm (0.0-0.2); Eosinophils 5 %; Lymphocytes 25 %; Lymphocytes Absolute 1.7 10^3/cmm (1.2-3.4); Monocytes Absolute 0.5 10^3/cmm (0.1-0.6); Segmented Neutrophils 59 %; Total Cells Counted 100 (0-100)
[2023-09-02 09:07] LABS: Absolute Neutrophil 4.1 10^3/cmm (1.4-6.5); Anisocytosis 1+; Giant Platelets Trace; Hypochromasia Trace; Platelet Estimate Normal (Normal); Poikilocytosis Trace
[2023-09-02 14:00] VITALS: BP 123/74; PULSE 101; RESP 16; TEMP 36.7; O2SAT 99
[2023-09-02 20:54] VITALS: BP 117/70; PULSE 114; RESP 18; TEMP 37.1; O2SAT 98
[2023-09-02] MEDS: zolpidem 5 mg Tablet PO (20:55)
--- NOTE | 2023-09-02 21:06 | PC.NURSE ---
RESTING IN BED WITH SITTER AT BEDSIDE. DENIES SI/HI AND AVH AT THIS TIME. PT APPEARS TO BE IMPROVING AND GAIT IS MORE STEADY. RATES ANXIETY 0/10 AND DEPRESSION 4/10. PT IS OBSERVED TO HAVE A FLAT AFFECT AND DEPRESSED MOOD. PT IS MORE VERBAL AND IS ABLE TO CONVERSE INTELLIGENTLY WITH STAFF. PT CONTINUES TO STATE SHE IS TIRED. PT WAS ENCOURAGED TO REST. SNACK AND DRINK OFFERED AND TAKEN. ALL QUESTIONS ANSWERED AND SUPPORT WAS VOICED. DENIES PAIN.
--- NOTE | 2023-09-03 03:33 | PC.NURSE ---
ONE TO ONE OBSERVATION DISCONTINUED PER DR. OJEDA. PT NO LONGER EXHIBITS SIGNS OF PSYCHOSIS AND BEHAVIORS HAVE IMPROVED WITH NO FALLS OBSERVED. PT EDUCATED.
[2023-09-03 06:00] VITALS: BP 129/77; PULSE 84; RESP 16; TEMP 36.8; O2SAT 96
[2023-09-03] MEDS: thiamine 100 mg Tablet PO (08:42)
[2023-09-03] MEDS: nitrofurantoin SR (BID) 100 mg Capsule PO ×2 (08:42→17:12)
[2023-09-03] MEDS: sodium chloride 1 gm Tablet PO ×2 (08:42→17:12)
[2023-09-03] MEDS: folic acid 1 mg Tablet PO (08:42)
[2023-09-03] MEDS: magnesium oxide 400 mg tablet PO ×2 (08:42→17:12)
[2023-09-03] MEDS: lisinopril 10 mg Tablet 20 MG PO (08:42)
[2023-09-03] MEDS: ARIPiprazole 10 mg Tablet PO (08:42)
[2023-09-03] MEDS: chlorthalidone 25 mg Tablet 12.5 MG PO (08:42)
[2023-09-03] MEDS: multivitamin therapeutic Tablet 1 TAB PO (08:42)
[2023-09-03] MEDS: iron complex forte Capsule 1 EACH PO (08:42)
[2023-09-03] MEDS: paliperidone ER 6 mg Tablet PO (08:42)
[2023-09-03] MEDS: amlodipine 10 mg Tablet PO (08:42)
[2023-09-03 13:51] VITALS: BP 102/61; PULSE 108; RESP 13; TEMP 36.9; O2SAT 98
[2023-09-03] MEDS: hyDROXYzine 25 mg Capsule 50 MG PO (14:21)
[2023-09-03] MEDS: nicotine 2 mg Gum BUCCAL (15:55)
[2023-09-03] MEDS: diphenhydrAMINE 50 mg Capsule PO (17:12)
--- NOTE | 2023-09-03 19:07 | P.NPUPN_ITS ---
Subjective NPU 2 Subjective: Patient presented today continuing to seem to take some steps forward in regards to her confusion she reports. She endorsed a desire to make sure she is doing better. We discussed the possibility of making some medication changes moving forward and she was open to that possibility. She denied any side effects to the medications at this time. Mental Status Exam 2 MSE Comments: This is a slender white female in hospital scrubs with limited grooming and eye contact. Patches of hair on her head are missing with a couple of small pencil sized areas of redness. No abnormal movements except for significant psychomotor retardation. Mostly cooperative with exam in no acute distress. Speech was very limited and decreased rate and volume. Mood described as better, affect subdued but congruent. Thought process more organized. Thought content: Patient denied suicidal or homicidal ideation, there were no delusions reported but concern paranoia and persecutory delusions noted but decreasing, she denied auditory or visual hallucinations and appeared to be attending to internal stimuli much less today. Attention and concentration were improving and memory appeared unreliable but none were formally tested. She is alert and oriented to person. Insight, judgment and impulse control are improving. Vitals/I&O/Wt Last Vital Signs Temp 98.5 F 09/03/23 13:51 Pulse 108 H 09/03/23 13:51 Resp 13 09/03/23 13:51 BP 102/61 09/03/23 13:51 Pulse Ox 98 09/03/23 13:51 O2 Del Method Room Air 09/03/23 06:00 Data NPU 09/02/23 08:04 09/02/23 08:04 A&P Assessment and plan (1) Suicidal ideation: (2) Depression: (3) Alcohol abuse: (4) UTI (urinary tract infection): (5) Psychosis: Plan This is a 52-year-old white female experiencing severe distress related to physical symptoms and has a history of mental health issues. She is currently off psychiatric medication but is experiencing severe depression and anxiety. She has a history of hospitalizations for mental health issues and has experienced hallucinations now reporting a belief that she has scabies but has not been validated with concerns of these being hallucinations.. 1. Initiated Abilify 10 mg p.o. daily. Increased to 15 mg p.o. daily. Decreased Abilify back to 10 mg p.o. daily and added Invega 3 mg p.o. daily. Increased Invega to 6 mg p.o. daily. Consider increasing Invega and decreasing Abilify 2. Encourage individual, group and milieu therapies. 3. Initiate every 15 minute checks for safety on the unit. 4. Encourage sober living treatment after discharge at the highest level care to which she is willing to commit. 5. Patient now having altered mental status/delirium/psychosis which is likely a complex interplay of her delusional illness, her alcohol withdrawal, and possibly her medical comorbidities like her anemia. Placed patient on a 96-hour hold. Patient placed on a 21-day hold 08/30/2023. Involuntary Hold Information 2 96 Hour Hold: 96 Hour Involuntary Admission: No Attestations NPU 2 Medical Necessity Statement*: Inpatient hospitalization is medically necessary and the clinically appropriate intervention at this time. We will monitor medications and make changes as indicated. Likely length of stay 7-10 days. May need a 21-day hold. Coding Level of Care Code Acute Code for [facility] Fwd Diagnoses Suicidal ideation R45.851 Depression F32.A Alcohol abuse F10.10 UTI (urinary tract infection) N39.0 Psychosis F29
[2023-09-03] MEDS: zolpidem 5 mg Tablet PO (20:46)
[2023-09-03 20:47] VITALS: BP 101/64; PULSE 119; RESP 16; TEMP 36.6; O2SAT 98
[2023-09-03] MEDS: trazodone 50 mg Tablet PO (22:12)
[2023-09-04 06:00] VITALS: BP 121/74; PULSE 93; RESP 16; TEMP 36.8; O2SAT 97
[2023-09-04 08:00] VITALS: BP 91/62
[2023-09-04] MEDS: multivitamin therapeutic Tablet 1 TAB PO (08:23)
[2023-09-04] MEDS: magnesium oxide 400 mg tablet PO ×2 (08:23→17:41)
[2023-09-04] MEDS: nitrofurantoin SR (BID) 100 mg Capsule PO ×2 (08:23→17:41)
[2023-09-04] MEDS: folic acid 1 mg Tablet PO (08:24)
[2023-09-04] MEDS: ARIPiprazole 10 mg Tablet PO (08:24)
[2023-09-04] MEDS: sodium chloride 1 gm Tablet PO ×2 (08:24→17:41)
[2023-09-04] MEDS: amlodipine 10 mg Tablet PO (08:24)
[2023-09-04] MEDS: paliperidone ER 6 mg Tablet PO (08:24)
[2023-09-04] MEDS: chlorthalidone 25 mg Tablet 12.5 MG PO (08:24)
[2023-09-04] MEDS: iron complex forte Capsule 1 EACH PO (08:24)
[2023-09-04] MEDS: thiamine 100 mg Tablet PO (08:24)
--- NOTE | 2023-09-04 09:18 | PC.NURSE ---
Patient calm during nursing shift assessment. Patient states that she is doing okay and that she feels rested. Patient denies SI, HI, AVH, depression, and anxiety.
[2023-09-04] MEDS: nicotine 2 mg Gum BUCCAL (10:27)
--- NOTE | 2023-09-04 11:01 | PC.NURSE ---
Pt came up to the nurses station around 1030 requesting to get her blood pressure taken because pt stated I felt my heart beat in my head. This nurse obtained pt blood pressure and pulse which read as follows BP: 85/52 P: 119. This nurse immediately spoke with physician who recommended pt drink water and pressure be rechecked. This nurse encouraged pt to drink more water per physician recommendation and obtained a fresh glass of ice water for pt. This nurse re-checked pt blood pressure and pulse 30 minutes after at about 1100 and vitals were as follows BP: 116/78 P:100. This nurse educated pt on the importance of drinking when pt feels thirsty and encouraged pt to inform staff when she needed more fluids. Pt verbalized understanding. Pt current needs are met at this time.
--- NOTE | 2023-09-04 12:00 | P.NPUPN_ITS ---
Subjective NPU 2 Subjective: Patient presented today reporting that she was doing fine. We discussed the scabies again and she talked about her mother reporting that it was in her head. She reports that she had not thought about it for couple days now and today she had some feeling of itchiness in her scalp and the thought crossed her mind but she reports having some sense that it cannot be true. But reports that she still has a natural leaning towards the fact that something is there. Otherwise we discussed her drinking in the impact that it can have on her mental health. She endorses that it has been a significant problem. She denies any side effects of the medication. Mental Status Exam 2 MSE Comments: This is a slender white female in hospital scrubs with limited grooming and eye contact. Patches of hair on her head are missing with a couple of small pencil sized areas of redness. No abnormal movements except for significant psychomotor retardation. Mostly cooperative with exam in no acute distress. Speech was very limited and decreased rate and volume. Mood described as better, affect subdued but congruent. Thought process more organized. Thought content: Patient denied suicidal or homicidal ideation, there were no delusions reported but concern paranoia and persecutory delusions noted but decreasing, she denied auditory or visual hallucinations and appeared to be attending to internal stimuli much less today. Attention and concentration were improving and memory appeared unreliable but none were formally tested. She is alert and oriented to person. Insight, judgment and impulse control are improving. Vitals/I&O/Wt Last Vital Signs Temp 98.3 F 09/04/23 06:00 Pulse 93 09/04/23 06:00 Resp 16 09/04/23 06:00 BP 91/62 09/04/23 08:00 Pulse Ox 97 09/04/23 06:00 O2 Del Method Room Air 09/04/23 06:00 Data NPU 09/02/23 08:04 09/02/23 08:04 A&P Assessment and plan (1) Suicidal ideation: (2) Depression: (3) Alcohol abuse: (4) UTI (urinary tract infection): (5) Psychosis: Plan This is a 52-year-old white female experiencing severe distress related to physical symptoms and has a history of mental health issues. She is currently off psychiatric medication but is experiencing severe depression and anxiety. She has a history of hospitalizations for mental health issues and has experienced hallucinations now reporting a belief that she has scabies but has not been validated with concerns of these being hallucinations.. 1. Initiated Abilify 10 mg p.o. daily. Increased to 15 mg p.o. daily. Decreased Abilify back to 10 mg p.o. daily and added Invega 3 mg p.o. daily. Increased Invega to 6 mg p.o. daily. Will increase Invega to 9 mg p.o. daily and decrease Abilify to 5 mg p.o. daily 2. Encourage individual, group and milieu therapies. 3. Initiate every 15 minute checks for safety on the unit. 4. Encourage sober living treatment after discharge at the highest level care to which she is willing to commit. 5. Patient now having altered mental status/delirium/psychosis which is likely a complex interplay of her delusional illness, her alcohol withdrawal, and possibly her medical comorbidities like her anemia. Placed patient on a 96-hour hold. Patient placed on a 21-day hold 08/30/2023. Involuntary Hold Information 2 96 Hour Hold: 96 Hour Involuntary Admission: No Attestations NPU 2 Medical Necessity Statement*: Inpatient hospitalization is medically necessary and the clinically appropriate intervention at this time. We will monitor medications and make changes as indicated. Likely length of stay 7-10 days. May need a 21-day hold. Coding Level of Care Code Acute Code for [facility] Fwd Diagnoses Suicidal ideation R45.851 Depression F32.A Alcohol abuse F10.10 UTI (urinary tract infection) N39.0 Psychosis F29
[2023-09-04] MEDS: hyDROXYzine 25 mg Capsule 50 MG PO (12:43)
[2023-09-04 14:00] VITALS: BP 119/70; PULSE 101; RESP 16; TEMP 36.6; O2SAT 98
[2023-09-04] MEDS: diphenhydrAMINE 50 mg Capsule PO (16:06)
[2023-09-04] MEDS: calcium carbonate 500 mg Chew Tablet PO (20:56)
[2023-09-04] MEDS: zolpidem 5 mg Tablet PO (20:56)
[2023-09-04 21:14] VITALS: BP 125/78; PULSE 104; RESP 18; TEMP 36.8; O2SAT 99
[2023-09-05 06:00] VITALS: BP 132/78; PULSE 99; RESP 17; TEMP 36.9; O2SAT 97
--- NOTE | 2023-09-05 06:07 | PC.NURSE ---
PT WAS GIVEN TUMS ONE TAB AT THE BEGINNING OF SHIFT FOR COMPLAINTS OF HEARTBURN MEDICATIONS DEEMED EFFECTIVE. PT HAS BEEN SLEEPING QUIETLY THROUGHOUT THE SHIFT. HAS SLEPT APPROXIMATELY 9 HOURS.
--- NOTE | 2023-09-05 09:08 | P.NPUPN_ITS ---
Subjective NPU 2 Subjective: Patient presented today reporting that she was feeling better. She reports that she is open to getting the injection and transitioning to Invega Sustenna as her primary medication. We discussed the risks, benefits and alternatives of making this change and she understood and agreed to proceed as is documented in this note. We discussed the likelihood of discharge in the morning. She denied any side effects of the medication. Mental Status Exam 2 MSE Comments: This is a slender white female in hospital scrubs with limited grooming and eye contact. Patches of hair on her head are missing with a couple of small pencil sized areas of redness. No abnormal movements except for significant psychomotor retardation. Mostly cooperative with exam in no acute distress. Speech was very limited and decreased rate and volume. Mood described as better, affect subdued but congruent. Thought process more organized. Thought content: Patient denied suicidal or homicidal ideation, there were no delusions reported but concern paranoia and persecutory delusions noted but decreasing, she denied auditory or visual hallucinations and appeared to be attending to internal stimuli much less today. Attention and concentration were improving and memory appeared unreliable but none were formally tested. She is alert and oriented to person. Insight, judgment and impulse control are improving. Vitals/I&O/Wt Last Vital Signs Temp 98.5 F 09/05/23 06:00 Pulse 99 09/05/23 06:00 Resp 17 09/05/23 06:00 BP 132/78 09/05/23 06:00 Pulse Ox 97 09/05/23 06:00 O2 Del Method Room Air 09/05/23 06:00 Data NPU 09/02/23 08:04 09/02/23 08:04 A&P Assessment and plan (1) Suicidal ideation: (2) Depression: (3) Alcohol abuse: (4) UTI (urinary tract infection): (5) Psychosis: Plan This is a 52-year-old white female experiencing severe distress related to physical symptoms and has a history of mental health issues. She is currently off psychiatric medication but is experiencing severe depression and anxiety. She has a history of hospitalizations for mental health issues and has experienced hallucinations now reporting a belief that she has scabies but has not been validated with concerns of these being hallucinations.. 1. Initiated Abilify 10 mg p.o. daily. Increased to 15 mg p.o. daily. Decreased Abilify back to 10 mg p.o. daily and added Invega 3 mg p.o. daily. Increased Invega to 6 mg p.o. daily. Will increase Invega to 9 mg p.o. daily and decrease Abilify to 5 mg p.o. daily. Give Invega Sustenna loading dose 234 mg IM to the deltoid. 2. Encourage individual, group and milieu therapies. 3. Initiate every 15 minute checks for safety on the unit. 4. Encourage sober living treatment after discharge at the highest level care to which she is willing to commit. 5. Patient now having altered mental status/delirium/psychosis which is likely a complex interplay of her delusional illness, her alcohol withdrawal, and possibly her medical comorbidities like her anemia. Placed patient on a 96-hour hold. Patient placed on a 21-day hold 08/30/2023. Involuntary Hold Information 2 96 Hour Hold: 96 Hour Involuntary Admission: No Attestations NPU 2 Medical Necessity Statement*: Inpatient hospitalization is medically necessary and the clinically appropriate intervention at this time. We will monitor medications and make changes as indicated. Likely length of stay 1 day. Coding Level of Care Code Acute Code for [facility] Fwd Diagnoses Suicidal ideation R45.851 Depression F32.A Alcohol abuse F10.10 UTI (urinary tract infection) N39.0 Psychosis F29
[2023-09-05] MEDS: lisinopril 10 mg Tablet 20 MG PO (09:42)
[2023-09-05] MEDS: chlorthalidone 25 mg Tablet 12.5 MG PO (09:43)
[2023-09-05] MEDS: sodium chloride 1 gm Tablet PO ×2 (09:43→16:56)
[2023-09-05] MEDS: thiamine 100 mg Tablet PO (09:43)
[2023-09-05] MEDS: magnesium oxide 400 mg tablet PO ×2 (09:44→16:56)
[2023-09-05] MEDS: iron complex forte Capsule 1 EACH PO (09:44)
[2023-09-05] MEDS: nitrofurantoin SR (BID) 100 mg Capsule PO ×2 (09:44→16:56)
[2023-09-05] MEDS: amlodipine 10 mg Tablet PO (09:44)
[2023-09-05] MEDS: ARIPiprazole 10 mg Tablet 5 MG PO (09:44)
[2023-09-05] MEDS: folic acid 1 mg Tablet PO (09:44)
[2023-09-05] MEDS: multivitamin therapeutic Tablet 1 TAB PO (09:44)
[2023-09-05] MEDS: paliperidone ER 9 mg Tablet PO (12:03)
[2023-09-05 13:58] VITALS: BP 111/64; PULSE 112; RESP 16; TEMP 36.7; O2SAT 98
[2023-09-05] MEDS: nicotine 2 mg Gum BUCCAL (14:46)
[2023-09-05] MEDS: hyDROXYzine 25 mg Capsule 50 MG PO (16:56)
[2023-09-05] MEDS: paliperidone palmitate 234 mg Syringe IM (17:59)
--- NOTE | 2023-09-05 19:13 | PC.NURSE ---
1759 Administered 234mg Invega IM to the right deltoid. Pt tolerated the injection well.
[2023-09-05] MEDS: calcium carbonate 500 mg Chew Tablet PO ×2 (19:32→22:43)
[2023-09-05] MEDS: ondansetron 4 MG Tablet PO (19:32)
[2023-09-05] MEDS: zolpidem 5 mg Tablet PO (20:17)
[2023-09-05 21:46] VITALS: BP 127/69; PULSE 114; RESP 18; TEMP 37.2; O2SAT 98
[2023-09-06 06:00] VITALS: BP 115/72; PULSE 106; RESP 16; TEMP 36.9; O2SAT 97
[2023-09-06] MEDS: nicotine 2 mg Gum BUCCAL (07:30)
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
[2023-09-06] MEDS: amlodipine 10 mg Tablet PO (08:35)
[2023-09-06] MEDS: iron complex forte Capsule 1 EACH PO (08:35)
[2023-09-06] MEDS: sodium chloride 1 gm Tablet PO (08:35)
[2023-09-06] MEDS: thiamine 100 mg Tablet PO (08:35)
[2023-09-06] MEDS: chlorthalidone 25 mg Tablet 12.5 MG PO (08:35)
[2023-09-06] MEDS: lisinopril 10 mg Tablet 20 MG PO (08:36)
[2023-09-06] MEDS: nitrofurantoin SR (BID) 100 mg Capsule PO (08:36)
[2023-09-06] MEDS: ARIPiprazole 10 mg Tablet 5 MG PO (08:36)
[2023-09-06] MEDS: paliperidone ER 9 mg Tablet PO (08:36)
[2023-09-06] MEDS: folic acid 1 mg Tablet PO (08:37)
[2023-09-06] MEDS: magnesium oxide 400 mg tablet PO (08:37)
[2023-09-06] MEDS: multivitamin therapeutic Tablet 1 TAB PO (08:37)
[2023-09-06 10:59] VITALS: BP 115/72; PULSE 106; RESP 16; TEMP 36.9; O2SAT 97
== END 2023-09-06 13:04 | disposition home or self-care (01) | DRG 881 ==
LOC: ER 21:48 → MEDSURG 08-24 12:49 → NP 08-26 15:47
PROVIDERS: Internal Medicine; Admitting Provider Psychiatry & Neurology Psychiatry; Emergency Provider Emergency Medicine; Visit Provider Psychiatry & Neurology Psychiatry
DX: F32.A Depression, unspecified (principal); R45.851 Suicidal ideations; F10.239 Alcohol dependence with withdrawal, unspecified; N39.0 Urinary tract infection, site not specified; F41.9 Anxiety disorder, unspecified; F17.210 Nicotine dependence, cigarettes, uncomplicated; Y90.8 Blood alcohol level of 240 mg/100 ml or more; F12.90 Cannabis use, unspecified, uncomplicated; D50.9 Iron deficiency anemia, unspecified; I10 Essential (primary) hypertension; F63.3 Trichotillomania
CPT/HCPCS: 36415; 70450; 76705; 80048; 80053; 80306; 80307; 81001; 81003; 81025; 82274; 82607; 82728; 83540; 83550; 83690; 83735; 85007; 85014; 85018; 85025; 85027; 86850; 86900; 86920; 87086; 87426; 96361; 96372; 96374; 96375; 97150; 97165; 99285; C9113; J0360; J0696; J1200; J1630; J1756; J1885; J2060; J2270; J2405; J2560; J7030; Q0162; Q0163

== ENCOUNTER 2024-01-01 17:38 | Inpatient (IN) | payer SELFPAY ==
[2024-01-01 17:46] VITALS: BP 152/90; PULSE 107; TEMP 36.8; O2SAT 95; BMI 24.0
--- NOTE | 2024-01-01 17:57 | CTR_ITS ---
PROCEDURE INFORMATION: Exam: CT Head Without Contrast Exam date and time: 01/01/2024 6:06 PM Age: 53 years old Clinical indication: Pain; Migraine; Patient HX: Headache for 5 days; Additional info: MENDOZA TECHNIQUE: Imaging protocol: Computed tomography of the head without contrast. Radiation optimization: All CT scans at this facility use at least one of these dose optimization techniques: automated exposure control; mA and/or kV adjustment per patient size (includes targeted exams where dose is matched to clinical indication); or iterative reconstruction. COMPARISON: CT head wo con* [id number] 08/31/2023 7:14 PM RADIATION DOSE METRICS: Total DLP (mGy-cm): 1050 FINDINGS: Brain: There is mild cerebral atrophy. There are minimal deep white matter microangiopathic ischemic changes. No acute hemorrhage is identified. No mass or mass effect is identified. Cerebral ventricles: The ventricles are prominent secondary to volume loss. Paranasal sinuses: The paranasal sinuses are clear. Mastoid air cells: The mastoid air cells are clear. Bones: No acute osseous abnormalities are seen. Soft tissues: The soft tissues are within normal limits. CT/CT head wo con* [id number] IMPRESSION: 1. No acute intracranial pathology. 2. Senescent changes.
[2024-01-01] MEDS: diphenhydrAMINE 50 mg/mL SDV 1mL IVP (18:02)
[2024-01-01] MEDS: metoclopramide 5 mg/mL SDV 2 mL 10 MG IVP (18:02)
--- NOTE | 2024-01-01 18:20 | ED_ITS ---
HPI - Headache General: Chief Complaint: Headache Stated Complaint: Headache x 5days Time Seen by Provider: 01/01/24 17:41 Source: patient and EMS Mode of arrival: EMS Limitations: no limitations History of Present Illness: 53-year-old female states she has had a history of headaches states she has had concussions in the past and states she gets headaches frequently but states usually resolved with ibuprofen she states that she has had this headache for the last 5 days it is waxed and waned states felt like her previous headaches that is worse with lights and sounds that she denies any vomiting neck pain or fever Associated symptoms: Deny chest pain, fever(s), nausea, rash or vomiting Review of Systems Const: Denies: fever(s), chills, body aches or change in appetite ENMT: Denies: throat pain or dental pain Card: Denies: chest pain Resp: Denies: dyspnea GI: Denies: abdominal pain, nausea, vomiting or diarrhea Musc: Denies: neck pain or back pain Skin/Breast: Denies: rash Neuro: Reports: headache(s) PFS ED PFSH: Social History Smoking and tobacco/nicotine status: current every day tobacco/nicotine user Physical Exam Const: COMMON NORMALS: no acute distress, patient oriented x3 and healthy appearing HENMT: COMMON NORMALS: normocephalic and atraumatic HEAD & SCALP: normocephalic and atraumatic Eye: COMMON NORMALS: Equal, round and reactive pupils present and EOMs intact bilaterally PUPIL: Yes Equal, round and reactive pupils present Neck/C-Spine: COMMON NORMALS: full ROM and supple Chest: COMMONS NORMALS: normal inspection of the chest Resp: COMMON NORMALS: normal respiratory effort Extremity: COMMON NORMALS: normal to inspection and full ROM Neuro: COMMON NORMALS: patient oriented x3, moves all extremities and no focal motor deficits Psych: COMMON NORMALS: mental status grossly normal, Normal thought process present and cooperative THOUGHT PROCESS: Normal thought process present Skin: COMMON NORMALS: no rashes or lesions noted and no wounds GENERAL SKIN EXAM: no rashes or lesions noted Course Vital Signs: Vital signs: Vital Signs Temperature 98.2 F 01/01/24 17:46 Pulse Rate 107 H 01/01/24 17:46 Respiratory Rate 16 01/01/24 18:38 Blood Pressure 108/67 01/01/24 18:38 Pulse Oximetry 91 01/01/24 18:38 Oxygen Delivery Me thod Room Air, Trach C ollar 01/01/24 18:38 MDM - Headache Medical Decision Making Patient presents here with a headache she is feeling much improved here she has no signs of subarachnoid hemorrhage or meningitis head CT here is normal she stable for discharge she is follow-up with PCP return if worsening. Medical Records I reviewed the patient's medical records. Lab Data Radiology Impressions Head CT 01/01/24 17:57 IMPRESSION: 1. No acute intracranial pathology. 2. Senescent changes. All radiology interpretation(s) finalized by discharge Discharge Plan Discharge Patient Disposition: Home Clinical Impression: Headache Condition: Stable Prescriptions: No Action No Known Home Medications ivermectin 3 mg tablet 11,666 mcg PO ONCE Qty: 1 0RF chlorthalidone 25 mg Tablet 12.5 mg PO DAILY 30 Days Qty: 30 1RF magnesium oxide 400 mg (241.3 mg magnesium) Tablet 400 mg PO BID 30 Days Qty: 60 1RF amlodipine 10 mg Tablet 10 mg PO DAILY 30 Days Qty: 30 1RF lisinopril 10 mg Tablet 20 mg PO DAILY 30 Days Qty: 30 1RF hydroxyzine pamoate 25 mg Capsule 50 mg PO Q6H PRN (Reason: Anxiety) 30 Days Qty: 120 1RF sodium chloride 1,000 mg Tablet,Soluble 1,000 mg PO BID 30 Days Qty: 60 1RF Vitamin B-1 (mononitrate) 100 mg Tablet 100 mg PO DAILY 30 Days Qty: 30 1RF trazodone 50 mg Tablet 50 mg PO BEDTIME PRN (Reason: Sleep) 30 Days Qty: 30 1RF zolpidem 5 mg Tablet 5 mg PO BEDTIME 30 Days Qty: 30 1RF Invega Sustenna 156 mg/mL syringe 156 mg IM Q30D 30 Days Qty: 1 2RF Rx Instructions: Next injection loading dose to deltoid 09/12/2023, then 10/10/2023 then as directed Discharge Orders: Discharge ED (Routine); Ordered 01/01/24 Ordered By: Onesimo Kaur Discharge Diet: Advance as tolerated Discharge Activity: Resume usual activity Patient Instructions: Acute Headache (ED) Coding Level of Care Code ED Cycle Director for Chg Azul
[2024-01-01 18:24] VITALS: RESP 16
[2024-01-01] MEDS: morphine 4 mg/mL SDV 1 mL IVP (18:24)
[2024-01-01 18:38] VITALS: BP 108/67; RESP 16; O2SAT 91
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
[2024-01-01 20:18] LABS: Basophils # 0.1 10^3/uL (0.0-0.1); Basophils % 0.7 %; Eosinophils # 0.2 10^3/uL (0.0-0.8); Eosinophils % 1.8 %; Hematocrit 31.5 % (36-47); Lymphocytes # 2.6 10^3/uL (0.8-4.8); Lymphocytes % 29.9 %; Mean Corpuscular HGB Conc 30.2 g/dL (30-55); Mean Corpuscular Hemoglobin 22.9 pg (27-33); Mean Corpuscular Volume 75.9 fl (85-98); Mean Platelet Volume 10.6 fL (7.4-10.4); Monocytes # 0.5 10^3/uL (0.2-0.9); Monocytes % 5.8 %; Neutrophils # 5.34 10^3/uL (1.8-7.7); Neutrophils % 61.7 %; Nucleated Red Blood Cells % 0 %; Platelet Count 269 10^3/cmm (157-399); Red Blood Count 4.15 10^6/uL (3.85-5.65); Red Cell Distribution Width 23.8 % (12.1-15.1); White Blood Count 8.66 10^3/uL (3.29-11.43)
--- NOTE | 2024-01-01 20:22 | PC.NURSE ---
96 HR HOLD Patient placed under 96 hour hold. Rights read to patient at 2020. Patient pleasant, verbalized understanding and stated no further questions.
--- NOTE | 2024-01-01 21:27 | PC.NURSE ---
blood drawn and taken to lab at this time
[2024-01-01 21:45] LABS: Amphetamines Screen Urine Positive (Negative); Barbiturates Screen Urine Negative (Negative); Benzodiazepines Screen Urine Negative (Negative); Cocaine Screen Urine Negative (Negative); Opiate Screen Urine Positive (Negative); PCP Screen Urine Negative (Negative); THC Screen Urine Negative (Negative)
[2024-01-01 21:46] LABS: Alanine Aminotransferase 91 U/L (0-33); Albumin Level 3.5 g/dL (3.5-5.2); Alcohol Level 180 mg/dL (0-10); Alkaline Phosphatase 278 U/L (35-105); Anion Gap 16.9 (5-19); Aspartate Amino Transferase 317 U/L (0-32); Blood Urea Nitrogen 7 mg/dL (6-20); Calcium 9.7 mg/dL (8.5-10.5); Carbon Dioxide 26 mmol/L (22-29); Chloride 98 mmol/L (98-107); Creatinine Clr Calc Pharmacy 76.4659; Globulin 4.7 g/dL (1.3-4.6); Glomerular Filtration Rate 75.6 mL/min (90-130); Glucose 80 mg/dL (65-115); Osmolality Calculated 283 mOsm/kg (285-295); Sodium 138 mmol/L (136-145); Total Bilirubin 0.5 mg/dL (0.15-1.2); Total Protein 8.2 g/dL (6.6-8.7)
[2024-01-01 21:47] LABS: Acetaminophen < 5.0 ug/mL (10-30); Potassium 2.9 mmol/L (3.5-5.1); Salicylate < 0.3 mg/dL (3-10)
--- NOTE | 2024-01-01 21:56 | PC.NURSE ---
SANDWICH AND PUDDING GIVEN TO PT PER REQUEST FOR SOMETHING TO EAT
[2024-01-01 23:15] VITALS: BP 123/81; PULSE 107; RESP 16; TEMP 36.6; O2SAT 95
[2024-01-02 06:00] VITALS: BP 124/73; PULSE 78; RESP 16; TEMP 36.7; O2SAT 96
[2024-01-02 07:44] VITALS: BP 188/128; PULSE 118; RESP 20; TEMP 36.8; O2SAT 97
[2024-01-02] MEDS: ibuprofen 600 mg Tablet PO (08:45)
[2024-01-02] MEDS: multivitamin therapeutic Tablet 1 TAB PO (08:45)
[2024-01-02] MEDS: ondansetron 4 MG Tablet PO (08:45)
[2024-01-02] MEDS: thiamine 100 mg Tablet PO (08:45)
[2024-01-02] MEDS: folic acid 1 mg Tablet PO (08:45)
[2024-01-02] MEDS: LORazepam 2 mg Tablet PO ×2 (08:45→12:22)
[2024-01-02 12:00] VITALS: BP 178/105; PULSE 91; RESP 20; TEMP 36.6; O2SAT 96
--- NOTE | 2024-01-02 12:22 | PC.NURSE ---
Patient scored 10 on CIWA. Administered ativan 2mg PO to patient, per protocol.
--- NOTE | 2024-01-02 13:09 | PC.NURSE ---
NEW ORDERS RECEIVED TO GIVE POTASSIUM CHLORIDE 20 MeQ PO NOW AND RECHECK CMP IN AM TO RECHECK POTASSIUM LEVEL. PT EDUCATED ON NEW ORDERS AND VERBALIZED UNDERSTANDING.
[2024-01-02] MEDS: potassium chloride ER 20 mEq Tablet PO (13:46)
--- NOTE | 2024-01-02 14:26 | PC.NURSE ---
PT BP AND HR RECHECK AT 1414 AND IS FOLLOWS 161/99 AND HR 85. PT IS RESTING IN BED AND IN NO DISTRESS. CIWA RE-ASSESSED AND IS 0 AT THIS TIME. PT CONTINUES TO REST WITH EYES CLOSED. ATIVAN DEEMED EFFECTIVE AT THIS TIME.
[2024-01-02 14:31] VITALS: BP 161/99; PULSE 85; RESP 20; TEMP 36.6; O2SAT 95
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
[2024-01-02] MEDS: paliperidone palmitate 234 mg Syringe IM (17:11)
--- NOTE | 2024-01-02 18:52 | PC.NURSE ---
VITALS RECHECKED BP IS 161/99 AND HR WAS 85 AT 1700. PT CONTINUES TO REST WITH EYES CLOSED NO DISTRESS NOTED.
--- NOTE | 2024-01-02 19:00 | PC.NURSE ---
BP WAS 75/105 AND HR 105 AT 1700. PT CONTINUES TO REST AND IS IN NO DISTRESS AT THIS TIME.
[2024-01-02 20:00] VITALS: BP 176/108; PULSE 112; RESP 20; TEMP 37.1; O2SAT 95
[2024-01-02] MEDS: hyDROXYzine 25 mg Capsule 50 MG PO (21:02)
[2024-01-02] MEDS: paliperidone ER 3 mg Tablet PO (21:02)
[2024-01-02] MEDS: trazodone 50 mg Tablet PO (21:02)
[2024-01-02] MEDS: acetaminophen 325 mg Tablet 650 MG PO (21:02)
[2024-01-03] VITALS (7 sets, daily range): BP systolic 138–194; BP diastolic 94–112; PULSE 88–116; RESP 16–18; TEMP 36.6–36.8; O2SAT 92–96
[2024-01-03] MEDS: multivitamin therapeutic Tablet 1 TAB PO (08:09)
[2024-01-03] MEDS: ibuprofen 600 mg Tablet PO (08:09)
[2024-01-03] MEDS: thiamine 100 mg Tablet PO (08:09)
[2024-01-03] MEDS: ondansetron 4 MG Tablet PO ×2 (08:09→21:04)
[2024-01-03] MEDS: folic acid 1 mg Tablet PO (08:09)
[2024-01-03] MEDS: LORazepam 2 mg Tablet PO ×2 (08:09→21:04)
--- NOTE | 2024-01-03 08:09 | PC.NURSE ---
PT CURRENTLY DENIES SI/HI/AH/VH. PT CURRENTLY DENIES DEPRESSION. PT ENDORSES ANXIETY RATING IT A 6/10 ON A 0-10 SCALE WHERE 0 IS NONE AND 10 IS THE WORST POSSIBLE. PT IS CONFUSED ON TIME AND REQUIRED REORIENTATION. PT IS ORIENTED TO PERSON AND PLACE. PT SCORED A 10 ON HER CIWA. PT BLOOD PRESSURE WAS ELEVATED, SPEAKING TO PHYSICIAN ABOUT RESTARTING PT PREVIOUS BLOOD PRESSURE MEDICATIONS. PT ALSO RECEIVED ATIVAN PER CIWA PROTOCOL. PT WAS COOPERATIVE WITH ASSESSMENT AND MEDICATIONS. PT CURRENT NEEDS ARE MET AT THIS TIME.
[2024-01-03 09:29] LABS: Alanine Aminotransferase 62 U/L (0-33); Albumin Level 2.8 g/dL (3.5-5.2); Alkaline Phosphatase 220 U/L (35-105); Aspartate Amino Transferase 167 U/L (0-32); Blood Urea Nitrogen 7 mg/dL (6-20); Calcium 8.4 mg/dL (8.5-10.5); Carbon Dioxide 26 mmol/L (22-29); Chloride 98 mmol/L (98-107); Creatinine Clr Calc Pharmacy 76.4659; Globulin 3.7 g/dL (1.3-4.6); Glomerular Filtration Rate 75.6 mL/min (90-130); Glucose 137 mg/dL (65-115); Osmolality Calculated 276 mOsm/kg (285-295); Sodium 133 mmol/L (136-145); Total Bilirubin 0.5 mg/dL (0.15-1.2); Total Protein 6.5 g/dL (6.6-8.7)
[2024-01-03 09:34] LABS: Anion Gap 12.5 (5-19); Potassium 3.5 mmol/L (3.5-5.1)
[2024-01-03] MEDS: amlodipine 10 mg Tablet PO (12:43)
[2024-01-03] MEDS: lisinopril 20 mg Tablet PO (12:43)
[2024-01-03] MEDS: sodium chloride 1 gm Tablet PO ×2 (12:43→17:29)
--- NOTE | 2024-01-03 17:33 | P.NPUPN_ITS ---
Subjective NPU 2 Subjective: 53-year-old female admitted with significant alcohol use along with methamphetamine abuse with psychotic symptoms along with suicidal ideation. Patient continued to report having problems stating that there was something in her skin. She had appeared to isolate herself on the milieu. There was no acts of aggression noted. She had remained somewhat confused but reported that she had used methamphetamine on the day prior to admission. She continued to remain on alcohol withdrawal protocol having received some Ativan. The patient had some electrolyte abnormalities and was given supplemental sodium. Mental Status Exam 2 MSE Comments: This is a slender white female in hospital gown with limited grooming and fleeting eye contact. She remained somewhat sedated. Red round lesions noted on scalp with no hair in the vicinity of the lesions. No abnormal movements except for mild psychomotor retardation. She was more cooperative with exam in mild distress. Speech was decreased in rate, productivity and volume. Mood described as okay. affect odd and subdued. Thought process: linear but superficial. Thought content: Patient continued to endorse suicidal ideation with plan to jump off tall building. She denied homicidal ideation., Some hallucinatory parasitosis appreciated. She denied auditory or visual hallucinations and did not appear to be responding to internal stimuli. Attention and concentration were impaired at this time. and memory was unreliable. She is alert and oriented to person and place but not date, month or day of week. Insight, judgment and impulse control are impaired. Vitals/I&O/Wt Last Vital Signs Temp 98 F 01/03/24 11:57 Pulse 110 H 01/03/24 16:00 Resp 17 01/03/24 16:00 BP 158/102 01/03/24 16:00 Pulse Ox 96 01/03/24 16:00 O2 Del Method Room Air 01/03/24 06:25 Weight last 48 hrs Weight 63.503 kg Data NPU 01/01/24 19:53 01/03/24 09:06 A&P Assessment and plan (1) Psychosis: (2) Alcohol abuse: (3) Methamphetamine use: (4) Suicidal ideation: (5) Depression: Plan This is a 53-year-old white female experiencing severe distress related to physical symptoms and has a history of mental health issues. She is currently off antipsychotic medication and is actively using alcohol and methamphetamine. 1. Invega Sustenna 234mg given on 01/02/24. Begin Invega oral 3mg daily 2. Encourage individual, group and milieu therapies. 3. Initiate every 15 minute checks for safety on the unit. 4. Encourage sober living treatment after discharge at the highest level care to which she is willing to commit. CIWA. 5. CIWA protocol. -Patient already scored and received Ativan in AM. Involuntary Hold Information 2 96 Hour Hold: 96 Hour Involuntary Admission: Yes Attestations NPU 2 Medical Necessity Statement*: Inpatient hospitalization is medically necessary and the clinically appropriate intervention at this time. We will monitor medications and make changes as indicated. The patient's likely length of stay 7-10 days. Coding Level of Care Code Acute Code for [facility] Fwd Diagnoses Psychosis F29 Alcohol abuse F10.10 Methamphetamine use F15.10 Suicidal ideation R45.851 Depression F32.A
[2024-01-03] MEDS: trazodone 50 mg Tablet PO (21:04)
[2024-01-03] MEDS: paliperidone ER 3 mg Tablet PO (21:04)
[2024-01-03] MEDS: acetaminophen 325 mg Tablet 650 MG PO (21:04)
[2024-01-04] VITALS: BP 144/90; PULSE 87; RESP 16; O2SAT 98
[2024-01-04 04:00] VITALS: BP 156/97; PULSE 88; RESP 16; O2SAT 95
[2024-01-04 07:56] VITALS: BP 164/92; PULSE 106; RESP 17; O2SAT 95
--- NOTE | 2024-01-04 08:08 | PC.NURSE ---
PT CURRENTLY DENIES SI/HI/AH/VH. PT CURRENTLY DENIES DEPRESSION AND ANXIETY. PT APPEARS FLAT IN AFFECT. PT WAS COOPERATIVE WITH ASSESSMENT. PT CURRENT NEEDS ARE MET AT THIS TIME.
[2024-01-04] MEDS: thiamine 100 mg Tablet PO (08:51)
[2024-01-04] MEDS: amlodipine 10 mg Tablet PO (08:51)
[2024-01-04] MEDS: lisinopril 20 mg Tablet PO (08:51)
[2024-01-04] MEDS: sodium chloride 1 gm Tablet PO ×2 (08:51→20:10)
[2024-01-04] MEDS: multivitamin therapeutic Tablet 1 TAB PO (08:51)
[2024-01-04] MEDS: acetaminophen 325 mg Tablet 650 MG PO (08:51)
[2024-01-04] MEDS: folic acid 1 mg Tablet PO (08:51)
[2024-01-04 09:51] LABS: Alanine Aminotransferase 50 U/L (0-33); Albumin Level 2.7 g/dL (3.5-5.2); Alkaline Phosphatase 203 U/L (35-105); Anion Gap 14.1 (5-19); Aspartate Amino Transferase 117 U/L (0-32); Blood Urea Nitrogen 5 mg/dL (6-20); Calcium 8.2 mg/dL (8.5-10.5); Carbon Dioxide 24 mmol/L (22-29); Chloride 101 mmol/L (98-107); Creatinine Clr Calc Pharmacy 87.3896; Globulin 3.8 g/dL (1.3-4.6); Glomerular Filtration Rate 88.2 mL/min (90-130); Glucose 155 mg/dL (65-115); Osmolality Calculated 280 mOsm/kg (285-295); Potassium 4.1 mmol/L (3.5-5.1); Sodium 135 mmol/L (136-145); Total Bilirubin 0.4 mg/dL (0.15-1.2); Total Protein 6.5 g/dL (6.6-8.7)
[2024-01-04 12:00] VITALS: BP 152/81; PULSE 90; RESP 17; O2SAT 93
--- NOTE | 2024-01-04 14:40 | P.NPUPN_ITS ---
Subjective NPU 2 Subjective: 53-year-old female admitted with significant alcohol use along with methamphetamine abuse with psychotic symptoms along with suicidal ideation. She had endorsed a long history of alcohol use stating that she drank 1/5 of alcohol daily for several years. She reported a history of iron deficiency anemia and reported a history of vomiting and abdominal discomfort with concerns over alcoholic gastritis. She continued to report that she was seeing sparkly things . She had reported feeling shaky and continued to report a suspicion that there were worms inside of her body. She had endorsed continued use of alcohol despite adverse consequences. Patient remained on the CIWA protocol having really received Ativan. Mental Status Exam 2 MSE Comments: This is a slender white female in hospital gown with limited grooming and fleeting eye contact. She was lying in bed and appeared in some acute distress. Red round lesions noted on scalp with no hair in the vicinity of the lesions. No abnormal movements except for mild psychomotor retardation. She was more cooperative with exam in mild distress. Speech was decreased in rate, productivity and volume. Mood described as terrible. affect remained odd and subdued. Thought process: linear but superficial. Thought content: Patient continued to endorse suicidal ideation with plan to jump off tall building. She denied homicidal ideation., Some hallucinatory parasitosis appreciated. She denied auditory or visual hallucinations and did not appear to be responding to internal stimuli. Attention and concentration were impaired at this time. and memory was unreliable. She is alert and oriented to person and place but not date, month or day of week. Insight, judgment and impulse control are impaired. Vitals/I&O/Wt Last Vital Signs Temp 98.2 F 01/03/24 20:00 Pulse 90 01/04/24 12:00 Resp 17 01/04/24 12:00 BP 152/81 01/04/24 12:00 Pulse Ox 93 01/04/24 12:00 O2 Del Method Room Air 01/04/24 04:00 Data NPU 01/01/24 19:53 01/04/24 09:13 A&P Assessment and plan (1) Psychosis: (2) Alcohol abuse: (3) Methamphetamine use: (4) Suicidal ideation: (5) Depression: Plan This is a 53-year-old white female experiencing severe distress related to physical symptoms and has a history of mental health issues. She is currently off antipsychotic medication and is actively using alcohol and methamphetamine. 1. Invega Sustenna 234mg given on 01/02/24. Continue Invega oral 3mg daily 2. Encourage individual, group and milieu therapies. 3. Initiate every 15 minute checks for safety on the unit. 4. Encourage sober living treatment after discharge at the highest level care to which she is willing to commit. JOHN. 5. CIWA protocol. -Patient already scored and received Ativan in AM. 6. Consider medicine consult, repeated electrolytes, check iron studies, HGB, HCT remain low, check electrolytes tommorow. Involuntary Hold Information 2 96 Hour Hold: 96 Hour Involuntary Admission: Yes Attestations NPU 2 Medical Necessity Statement*: Inpatient hospitalization is medically necessary and the clinically appropriate intervention at this time. We will monitor medications and make changes as indicated. The patient's likely length of stay 5-7 days. Coding Level of Care Code Acute Code for g Fwd Diagnoses Psychosis F29 Alcohol abuse F10.10 Methamphetamine use F15.10 Suicidal ideation R45.851 Depression F32.A
[2024-01-04 15:20] LABS: Ferritin 21 ng/mL (15-150); Iron 18 ug/dL (37-145); Percent Saturation 7.2 % (20-50); Total Iron Binding Capacity 249 mcg/dl; Unsaturated Iron Binding 231 ug/dL (112-347)
[2024-01-04 16:00] VITALS: BP 146/83; PULSE 79; RESP 16; O2SAT 94
[2024-01-04] MEDS: LORazepam 2 mg Tablet PO (16:00)
[2024-01-04] MEDS: hyDROXYzine 25 mg Capsule 50 MG PO (18:23)
[2024-01-04 20:00] VITALS: BP 143/91; PULSE 117; RESP 16; TEMP 36.6; O2SAT 98
[2024-01-04] MEDS: paliperidone ER 3 mg Tablet PO (20:10)
[2024-01-04] MEDS: trazodone 50 mg Tablet PO (20:10)
[2024-01-05] VITALS (7 sets, daily range): BP systolic 142–178; BP diastolic 92–110; PULSE 86–115; RESP 16–18; TEMP 37.1; O2SAT 96–100; BMI 24.0
[2024-01-05] MEDS: amlodipine 10 mg Tablet PO (08:44)
[2024-01-05] MEDS: thiamine 100 mg Tablet PO (08:44)
[2024-01-05] MEDS: sodium chloride 1 gm Tablet PO ×2 (08:44→21:46)
[2024-01-05] MEDS: multivitamin therapeutic Tablet 1 TAB PO (08:46)
[2024-01-05] MEDS: LORazepam 2 mg Tablet PO ×4 (08:47→21:46)
[2024-01-05] MEDS: lisinopril 20 mg Tablet PO (08:47)
[2024-01-05] MEDS: folic acid 1 mg Tablet PO (08:47)
--- NOTE | 2024-01-05 08:47 | PC.NURSE ---
Patient scored 10 on CIWA scale. Patient reports hallucinations of boyfriend Alex. Administered ativan 2mg PO to patient. Will continue to monitor.
--- NOTE | 2024-01-05 08:56 | PC.NURSE ---
During morning shift assessment, patient rated anxiety 6/10. Patient stated that she did not sleep well last night, that she was up late talking. Patient stated that she has been hallucinating, hearing her boyfriend Alex say things to here like, hey get me a program mgr. Patient states that things would be easier if she were , denies any specific plan. Patient went on to say that she doesn't have any intentions to harm self.
--- NOTE | 2024-01-05 12:19 | PC.NURSE ---
Patient scored 10 on CIWA scale. Administering Ativan 2mg PO per CIWA scale. Patient cooperative, tearful.
--- NOTE | 2024-01-05 15:51 | W.PM.NPUPNS ---
Subjective NPU Subjective: 53-year-old female admitted with significant alcohol use along with methamphetamine abuse with psychotic symptoms along with suicidal ideation. Patient had reported no alcohol withdrawal symptoms. She had continued to report feeling as if she had been infested by worms. She had reported chronic history of methamphetamine use for several years. Patient was isolative on the milieu. Labs had revealed that the patient did appear to be suffering from some iron deficiency anemia. She reported low energy and low motivation. Patient reports struggles with concentration. She reported no hx of vivitrol to target alcohol cravings. Mental Status Exam MSE Comments: This is a slender white female in hospital gown with limited grooming and fleeting eye contact. She was lying in bed and appeared in some acute distress. Red round lesions noted on scalp with no hair in the vicinity of the lesions. No abnormal movements except for mild psychomotor retardation. She was more cooperative with exam in mild distress. Speech was improved in rate, productivity and volume. Mood described as depressed. affect was flat today. Thought process: linear but superficial. Thought content: Patient continued to endorse suicidal ideation without plan today. She denied homicidal ideation.,Hallucinatory parasitosis appreciated. She denied auditory or visual hallucinations and did not appear to be responding to internal stimuli. Attention and concentration were impaired at this time. and memory was unreliable. She is alert and oriented to person and place but not date, month or day of week. Insight, judgment and impulse control are impaired. Vitals/I&O/Wt Last Vital Signs Temp 97.9 F 01/04/24 20:00 Pulse 110 H 01/05/24 12:00 Resp 17 01/05/24 12:00 BP 170/110 01/05/24 12:00 Pulse Ox 100 01/05/24 12:00 O2 Del Method Room Air 01/05/24 04:00 Weight last 48 hrs Weight 63.503 kg Data NPU 01/01/24 19:53 01/04/24 09:13 A&P Assessment and plan (1) Psychosis: (2) Alcohol abuse: (3) Methamphetamine use: (4) Suicidal ideation: (5) Depression: Plan This is a 53-year-old white female experiencing severe distress related to physical symptoms and has a history of mental health issues. She is currently off antipsychotic medication and is actively using alcohol and methamphetamine. 1. Invega Sustenna 234mg given on 01/02/24. Continue Invega oral 3mg daily 2. Encourage individual, group and milieu therapies. 3. Initiate every 15 minute checks for safety on the unit. 4. Encourage sober living treatment after discharge at the highest level care to which she is willing to commit. CIWA. 5. CIWA protocol. -Patient already scored and received Ativan in AM. 6. Consider medicine consult. Involuntary Hold Information 96 Hour Hold: 96 Hour Involuntary Admission: Yes Attestations NPU Medical Necessity Statement*: Inpatient hospitalization is medically necessary and the clinically appropriate intervention at this time. We will monitor medications and make changes as indicated. The patient's likely length of stay 5-7 days. Coding Level of Care Code Acute Code for [facility] Fwd Diagnoses Psychosis F29 Alcohol abuse F10.10 Methamphetamine use F15.10 Suicidal ideation R45.851 Depression F32.A
--- NOTE | 2024-01-05 16:50 | PC.NURSE ---
Patient scored 10 on CIWA protocol. Administered ativan 2mg PO to patient.
[2024-01-05] MEDS: ondansetron 4 MG Tablet PO ×2 (20:13→21:46)
[2024-01-05] MEDS: hyDROXYzine 25 mg Capsule 50 MG PO (21:47)
[2024-01-05] MEDS: trazodone 50 mg Tablet PO (21:47)
[2024-01-05] MEDS: acetaminophen 325 mg Tablet 650 MG PO (21:47)
[2024-01-06] VITALS: BP 153/92; PULSE 86; RESP 16; O2SAT 97
[2024-01-06 04:00] VITALS: BP 151/91; PULSE 81; RESP 16; O2SAT 96
[2024-01-06 07:56] VITALS: BP 164/109; PULSE 104; RESP 16; O2SAT 96
[2024-01-06] MEDS: acetaminophen 325 mg Tablet 650 MG PO ×2 (08:52→17:22)
[2024-01-06] MEDS: amlodipine 10 mg Tablet PO (08:52)
[2024-01-06] MEDS: sodium chloride 1 gm Tablet PO ×2 (08:52→22:07)
[2024-01-06] MEDS: multivitamin therapeutic Tablet 1 TAB PO (08:52)
[2024-01-06] MEDS: nicotine 4 mg lozenge MUCOUS MEM (08:52)
[2024-01-06] MEDS: ondansetron 4 MG Tablet PO ×3 (08:52→20:32)
[2024-01-06] MEDS: lisinopril 20 mg Tablet PO (08:52)
[2024-01-06] MEDS: hyDROXYzine 25 mg Capsule 50 MG PO (08:52)
[2024-01-06] MEDS: folic acid 1 mg Tablet PO (08:52)
[2024-01-06] MEDS: thiamine 100 mg Tablet PO (08:52)
--- NOTE | 2024-01-06 09:58 | PC.NURSE ---
RESTING IN BED. TOOK MEDICATIONS THIS AM AND THEN HAD A LARGE AMOUNT OF EMESIS. DENIES SI/HI AND AVH AT THIS TIME. IBUPROFEN GIVEN FOR PAIN 4/10 HEADACHE. PT SCORED 2 ON CIWA PROTOCOL. PT CONTINUES TO WITHDRAW TO ROOM. ALL QUESTIONS ANSWERED AND SUPPORT VOICED.
[2024-01-06 12:00] VITALS: BP 165/96; PULSE 92; RESP 17; TEMP 36.6; O2SAT 99
[2024-01-06 16:00] VITALS: BP 187/107; PULSE 101; RESP 17; TEMP 36.7; O2SAT 99
[2024-01-06] MEDS: LORazepam 2 mg Tablet PO (17:22)
--- NOTE | 2024-01-06 17:44 | PC.NURSE ---
Addendum entered and electronically signed by Karolyn Lane RN 01/06/24 17:55: PT BP CONTINUES TO BE ELEVATED AT 187/107 AND HR OF 101. Original Note: PT SCORED 19 ON CIWA PROTOCOL. HAD EMESIS TIMES TWO THIS SHIFT. PT WAS GIVEN ZOFRAN 30 MINUTES PRIOR TO TAKING TYLENOL 650 MG FOR 5/10 HEADACHE. PT ALSO RECEIVED ATIVAN 2 MG PO PER CIWA PROTOCOL. PT CONTINUES TO HAVE PERIODS OF ANXIETY, AGITATION, PERSPIRATION AND TREMORS. PT HAS RESTED INTERMITTENTLY THROUGHOUT THE SHIFT. SUPPORT VOICED.
--- NOTE | 2024-01-06 18:51 | P.NPUPN_ITS ---
Subjective NPU 2 Subjective: 53-year-old female admitted with significant alcohol use along with methamphetamine abuse with psychotic symptoms along with suicidal ideation. Patient continued to have episodes of emesis. Patient had reported difficulties with acid reflux. She had reported that she no longer had suicidal ideation. She continued to report some concerns about being infested with worms. Patient had reported no previous trials on medications to manage cravings for alcohol. She had continued to isolate herself on the milieu while lying in bed. She had reported struggles with oral intake. Patient had no alcohol related withdrawal symptoms at this time. Mental Status Exam 2 MSE Comments: This is a slender white female in hospital gown with limited grooming and fleeting eye contact. She was lying in bed and appeared in some acute distress. Red round lesions noted on scalp with no hair in the vicinity of the lesions. No abnormal movements except for mild psychomotor retardation. She was more cooperative with exam in mild distress. Speech was improved in rate, productivity and volume. Mood described as depressed. affect remained restricted. Thought process: linear but superficial. Thought content: Patient denied suicidal ideation with no plan reported. She denied homicidal ideation. ,Hallucinatory parasitosis appreciated. She denied auditory or visual hallucinations and did not appear to be responding to internal stimuli. Attention and concentration were impaired at this time. and memory was unreliable. She is alert and oriented to person and place but not date, month or day of week. Insight, judgment and impulse control are impaired. Vitals/I&O/Wt Last Vital Signs Temp 98.1 F 01/06/24 16:00 Pulse 101 H 01/06/24 16:00 Resp 17 01/06/24 16:00 BP 187/107 01/06/24 16:00 Pulse Ox 99 01/06/24 16:00 O2 Del Method Room Air 01/06/24 04:00 Weight last 48 hrs Weight 63.503 kg Data NPU 01/01/24 19:53 01/04/24 09:13 A&P Assessment and plan (1) Psychosis: (2) Alcohol abuse: (3) Methamphetamine use: (4) Suicidal ideation: (5) Depression: Plan This is a 53-year-old white female experiencing severe distress related to physical symptoms and has a history of mental health issues. She is currently off antipsychotic medication and is actively using alcohol and methamphetamine. 1. Invega Sustenna 234mg given on 01/02/24. Continue Invega oral 3mg daily 2. Encourage individual, group and milieu therapies. 3. Initiate every 15 minute checks for safety on the unit. 4. Encourage sober living treatment after discharge at the highest level care to which she is willing to commit. JOHN. 5. Medical consult. Involuntary Hold Information 2 96 Hour Hold: 96 Hour Involuntary Admission: Yes Attestations NPU 2 Medical Necessity Statement*: Inpatient hospitalization is medically necessary and the clinically appropriate intervention at this time. We will monitor medications and make changes as indicated. The patient's likely length of stay 3-4 days. Coding Level of Care Code Acute Code for [facility] Fwd Diagnoses Psychosis F29 Alcohol abuse F10.10 Methamphetamine use F15.10 Suicidal ideation R45.851 Depression F32.A
[2024-01-06] MEDS: paliperidone palmitate 156 mg Syringe IM (19:29)
[2024-01-06] MEDS: paliperidone ER 3 mg Tablet PO ×2 (20:00→21:58)
--- NOTE | 2024-01-06 20:01 | PC.NURSE ---
20:00 CIWA =11. 2mg ej fox
[2024-01-06 20:17] VITALS: BP 160/95
[2024-01-06] MEDS: pantoprazole DR 40 mg Tablet PO (20:33)
[2024-01-06] MEDS: sucralfate 1 gm/10 mL Oral Liq UDC PO (21:54)
[2024-01-07] VITALS: BP 177/103; PULSE 115; RESP 17; O2SAT 99
[2024-01-07 04:00] VITALS: BP 163/106; PULSE 84; RESP 16; O2SAT 98
[2024-01-07 08:00] VITALS: BP 173/116; PULSE 111; RESP 17; O2SAT 96
--- NOTE | 2024-01-07 09:00 | PC.NURSE ---
PT CURRENTLY DENIES SI/HI/AH/VH AT THIS TIME. PT ENDORSES NIGHTMARES THROUGHOUT THE NIGHT. PT CURRENTLY DENIES DEPRESSION AT THIS TIME. PT ENDORSES ANXIETY RATING IT A 4/10 ON A 0-10 SCALE WHERE 0 IS NONE AND 10 IS THE WORST POSSIBLE. PT STATED TO THIS NURSE I JUST HOPE THEY CAN FIGURE SOMETHING OUT ABOUT MY STOMACH TODAY. PT ENDORSED EATING BREAKFAST AND WAS ABLE TO HOLD IT DOWN. PT CURRENT NEEDS ARE MET A THIS TIME.
[2024-01-07] MEDS: thiamine 100 mg Tablet PO (09:21)
[2024-01-07] MEDS: folic acid 1 mg Tablet PO (09:21)
[2024-01-07] MEDS: multivitamin therapeutic Tablet 1 TAB PO (09:21)
[2024-01-07] MEDS: lisinopril 20 mg Tablet PO (09:22)
[2024-01-07] MEDS: ferrous gluconate 324 mg Tablet PO ×2 (09:22→17:33)
[2024-01-07] MEDS: pantoprazole DR 40 mg Tablet PO ×2 (09:22→17:33)
[2024-01-07] MEDS: hyDROXYzine 25 mg Capsule 50 MG PO ×2 (09:22→21:48)
[2024-01-07] MEDS: amlodipine 10 mg Tablet PO (09:22)
[2024-01-07] MEDS: nicotine 4 mg lozenge MUCOUS MEM (09:22)
[2024-01-07 12:00] VITALS: BP 120/80; PULSE 121; RESP 18; O2SAT 100
[2024-01-07 13:09] LABS: Basophils # 0.1 10^3/uL (0.0-0.1); Basophils % 0.8 %; Eosinophils # 0.3 10^3/uL (0.0-0.8); Eosinophils % 3.8 %; Hematocrit 33.7 % (36-47); Lymphocytes # 1.4 10^3/uL (0.8-4.8); Lymphocytes % 21.3 %; Mean Corpuscular Hemoglobin 23.5 pg (27-33); Mean Corpuscular Volume 78.6 fl (85-98); Mean Platelet Volume 10.6 fL (7.4-10.4); Monocytes # 0.5 10^3/uL (0.2-0.9); Monocytes % 7.3 %; Neutrophils # 4.38 10^3/uL (1.8-7.7); Neutrophils % 66.5 %; Nucleated Red Blood Cells % 0 %; Platelet Count 341 10^3/cmm (157-399); Red Blood Count 4.29 10^6/uL (3.85-5.65); Red Cell Distribution Width 24.1 % (12.1-15.1); White Blood Count 6.58 10^3/uL (3.29-11.43)
[2024-01-07 13:29] LABS: Alanine Aminotransferase 43 U/L (0-33); Albumin Level 3.7 g/dL (3.5-5.2); Alkaline Phosphatase 182 U/L (35-105); Anion Gap 14.6 (5-19); Aspartate Amino Transferase 74 U/L (0-32); Blood Urea Nitrogen 8 mg/dL (6-20); Calcium 9.3 mg/dL (8.5-10.5); Carbon Dioxide 23 mmol/L (22-29); Chloride 97 mmol/L (98-107); Creatinine Clr Calc Pharmacy 101.9545; Globulin 4.3 g/dL (1.3-4.6); Glomerular Filtration Rate 105.4 mL/min (90-130); Glucose 154 mg/dL (65-115); Osmolality Calculated 271 mOsm/kg (285-295); Potassium 4.6 mmol/L (3.5-5.1); Sodium 130 mmol/L (136-145); Total Bilirubin 0.3 mg/dL (0.15-1.2)
[2024-01-07] MEDS: LORazepam 2 mg Tablet PO (15:56)
[2024-01-07 16:00] VITALS: BP 137/80; PULSE 111; RESP 17; O2SAT 99
--- NOTE | 2024-01-07 16:30 | PM.CONSULT ---
Providers/Reason For Consult Consulting Physician/Specialty*: Dr. Bautista/internal medicine Reason for Consult*: Nausea and vomiting Requesting Physician: Dr. Blanchard Attending Physician: Lucian Hoang MD History of Present Illness History of Present Illness Kathrine Dunne is a 53 year old female with past medical history of alcohol abuse, schizophrenia, suicidal ideation, psychosis, iron deficiency anemia, history of GERD with positive stool for occult blood who was admitted to Neuropsych Unit on 01/01 with concerns for psychosis. On admission her blood blood alcohol level was around 180 and urine testing was positive for amphetamines. Medicine was consulted because of patient having episodes of nausea and episodes of vomiting. Overnight Protonix and Carafate was started after which her oral intake has improved. Patient states she is feeling a lot better. Denies any abdominal pain. Does not have a primary care provider. Does not take any medications at baseline. During hospitalization she was also found to have elevated blood pressures for which she has not started on antihypertensives and her blood pressures have remained stable. Patient had received Ativan 30 minutes prior to examination. Currently she denies any headache, dizziness, anxiety, jitteriness, nausea. Review of Systems General: Reports: 10 or more systems reviewed and unremarkable except in HPI and below Const: Denies: fever(s), chills, body aches, change in appetite, change in weight, malaise, night sweats, diaphoresis, change in sleep pattern, daytime sleepiness or snoring Eyes: Denies: change in vision, blurry vision, photophobia, eye discomfort or eye discharge ENMT: Denies: throat pain, enlarged tonsils, hoarseness, mouth pain, oral sores, dry mouth, tinnitus, nasal congestion or post nasal drip Card: Denies: chest pain, palpitations, irregular heart rhythm, edema, swelling of feet/ankles, lightheadedness, syncope, pre-syncope, dyspnea on exertion, orthopnea, leg pain with exertion or acrocyanosis Resp: Denies: dyspnea, productive cough, non-productive cough, wheezing, stridor, pain on inspiration, change in phlegm color, hemoptysis or chest congestion GI: Denies: abdominal pain, nausea, vomiting, hematemesis, coffee ground emesis, dysphagia, heartburn, diarrhea, constipation, bloating, GI cramping, change in bowel habits, pain on defecation, hematochezia or melena : Denies: flank pain, dysuria, urinary frequency, urinary urgency, urinary hesitancy, nocturia or hematuria Musc: Denies: neck pain, back pain, extremity pain, joint pain, joint swelling, joint redness, joint stiffness or limited range of motion Neuro: Denies: headache(s), numbness in extremities, weakness in extremities, sensory changes, lack of coordination, difficulty walking, frequent falls, dizziness, vertigo, confusion, Slurred speech present, difficulty communicating thoughts or seizure-like activity Psych: Denies: anxiety, depression, mood swings, panic attacks, hopelessness or irritability Endo: Denies: polyuria, polydipsia, tired all the time, cold intolerance, excessive sweating, flushing or heat intolerance Lev/Lymph: Denies: easy bruising or easy bleeding All/Imm: Denies: tongue swelling, facial swelling or acute wheezing Medications/Allergies Home Medications Medication Instructions Recorded Confirmed Last Taken Type paliperidone palmitate 234 mg/1.5 234 mg IM Q30D 01/03/24 01/03/24 01/02/24 History mL intramuscular syringe (Invega Sustenna) Allergies Allergy/AdvReac Type Severity Reaction Status Date / Time No Known Allergies Allergy Verified 01/01/24 17:51 Current Medications Generic Name Dose Route Start Last Admin Trade Name Pioq PRN Reason Stop Dose Admin Acetaminophen 650 mg 01/01/24 23:15 01/06/24 17:22 Acetaminophen 325 Mg Tablet PO 650 mg Q4H PRN Administration MILD PAIN Amlodipine Besylate 10 mg 01/03/24 11:51 01/07/24 09:22 Amlodipine 10 Mg Tablet PO 10 mg DAILY VANESSA Administration Ferrous Gluconate 324 mg 01/07/24 08:00 01/07/24 09:22 Ferrous Gluconate 324 Mg Tablet PO 324 mg BIDWM VANESSA Administration Folic Acid 1 mg 01/02/24 09:00 01/07/24 09:21 Folic Acid 1 Mg Tablet PO 1 mg DAILY VANESSA Administration Hydroxyzine Pamoate 50 mg 01/01/24 23:15 01/07/24 09:22 Hydroxyzine 25 Mg Capsule PO 50 mg Q6H PRN Administration ANXIETY Ibuprofen 600 mg 01/01/24 23:33 01/03/24 08:09 Ibuprofen 600 Mg Tablet PO 600 mg Q6H PRN Administration MODERATE PAIN Lisinopril 20 mg 01/03/24 11:52 01/07/24 09:22 Lisinopril 20 Mg Tablet PO 20 mg DAILY VANESSA Administration Lorazepam 2 mg 01/02/24 08:00 01/07/24 15:56 Lorazepam 2 Mg Tablet PO 2 mg PROTOCOL PRN Administration WITHDRAWAL Protocol Multivitamins Therapeutic 1 tab 01/02/24 09:00 01/07/24 09:21 Multivitamin Therapeutic Tablet PO 1 tab DAILY VANESSA Administration Nicotine Polacrilex 4 mg 01/01/24 23:33 01/07/24 09:22 Nicotine 4 Mg Lozenge MUCOUS MEM 4 mg Q2H PRN Administration NICOTINE CRAVINGS Ondansetron HCl 4 mg 01/01/24 23:15 01/06/24 20:32 Ondansetron 4 Mg Tablet PO 4 mg Q6H PRN Administration NAUSEA AND VOMITING Paliperidone 3 mg 01/02/24 21:00 01/06/24 21:58 Paliperidone Er 3 Mg Tablet PO 3 mg BEDTIME VANESSA Administration Pantoprazole Sodium 40 mg 01/06/24 20:00 01/07/24 09:[address] 40 Mg Tablet PO 40 mg BID VANESSA Administration Sodium Chloride 1 gm 01/04/24 21:00 01/07/24 11:17 Sodium Chloride 1 Gm Tablet PO Not Given 0900,2100 [facility] Sucralfate 1 gm 01/06/24 21:00 01/07/24 12:43 Sucralfate 1 Gm/10 Ml Oral Liq Udc PO Not Given AC&BEDTIME VANESSA Thiamine Mononitrate 100 mg 01/02/24 09:00 01/07/24 09:21 Thiamine 100 Mg Tablet PO 100 mg DAILY VANESSA Administration Trazodone HCl 50 mg 01/01/24 23:15 01/05/24 21:47 Trazodone 50 Mg Tablet PO 50 mg BEDTIME PRN Administration SLEEP PFSH Acute PFSH: Medical History Positive occult stool blood test Gastritis Alcohol use disorder, severe, dependence Iron deficiency anemia Alcohol abuse Social History Smoking and tobacco/nicotine status: current every day tobacco/nicotine user Vitals/I&O/Wt Last Vital Signs Temp 98.1 F 01/06/24 16:00 Pulse 121 H 01/07/24 12:00 Resp 18 01/07/24 12:00 BP 120/80 01/07/24 12:00 Pulse Ox 100 01/07/24 12:00 O2 Del Method Room Air 01/07/24 04:00 Physical Exam Narrative: General: No acute distress, AO x3 HEENT: PERRLA, pupils bilaterally equal and reactive Chest: Normal vesicular breath sounds, no added sounds, equal good air entry bilaterally CVS: S1-S2 regular, no murmurs, no tachycardia, no gallops, no rubs Abdomen: Soft, nontender, no organomegaly, bowel sounds present Neuro: No focal deficits, no facial deformity, AO x3, power 5/5 in all limbs Data 01/07/24 12:42 01/07/24 12:42 A&P Assessment and plan (1) Nausea and vomiting: Nausea and vomiting most likely in setting of gastritis. Cannot rule out slight alcohol withdrawal as well. Symptoms improving after initiation of Protonix and Carafate. (2) Gastritis: History of stool for occult blood positive in July. 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 Patient would benefit with surgical consultation as an outpatient for endoscopy. Till that time patient should continue with Protonix twice daily for next 4 weeks followed by once daily and Carafate before meals and at bedtime for next 4 weeks. Counseled patient in detail about alcohol cessation for improvement of symptoms. (3) Alcohol abuse: (4) Iron deficiency anemia: Appreciate iron panel. Check vitamin B12 and folate levels. Continue with iron supplementation twice daily for now. Hemoglobin stable for now. (5) Alcohol use disorder, severe, dependence: (6) Hypertension: Not a known history. Goal blood pressure less than 140/90 mmHg. Currently on lisinopril 20 mg and amlodipine 10 mg. Heart rate slightly elevated. Could be in setting of alcohol withdrawal but patient would benefit from metoprolol. Stop lisinopril for now. Continue amlodipine. Add metoprolol 25 mg twice daily. Will uptitrate as for goal blood pressures. Plan Suicidal ideation/psychosis: Treatment as per primary team. Transaminitis: Most likely alcoholic hepatitis in nature. Check hepatitis panel. Check HIV. Check INR in AM. Check vitamin B12, folate, TSH, lipid panel, A1c. Patient will benefit with a PCP. Will consult case management. When patient is ready for discharge she should be discharged on Protonix twice daily for next 4 weeks followed by once daily, Carafate before meals and at bedtime for 4 weeks, amlodipine 10 mg daily, metoprolol 25 mg twice daily with advised to follow-up with PCP within next 1 week. Care discussed in detail with patient's RN at bedside. Consult Attestations Medical Necessity Statement: As per the primary team Diagnoses Nausea and vomiting R11.2 Gastritis K29.70 Alcohol abuse F10.10 Iron deficiency anemia D50.9 Alcohol use disorder, severe, dependence F10.20 Hypertension I10
[2024-01-07 16:44] LABS: Thyroid Stimulating Hormone 3.57 uIU/mL (0.27-4.20); Vitamin B12 974 pg/mL (232-1245)
--- NOTE | 2024-01-07 17:06 | W.PM.NPUPNS ---
Subjective NPU Subjective: 53-year-old female admitted with significant alcohol use along with methamphetamine abuse with psychotic symptoms along with suicidal ideation. The patient had less episodes of emesis today. She had continued to state that she had been using alcohol for long periods of time and appeared minimally engaged in consideration for inpatient substance abuse treatment despite the use of methamphetamine and alcohol for several years. She had reported having problems with managing her anxiety. She had reported continued concerns over her problems with her stomach despite appearing to understand that much of her problems with abdominal discomfort were associated with alcoholic gastritis. She continued to report cravings for alcohol and reported limited desire to consider any treatment to reduce the cravings for alcohol. She had struggled with attending groups. She had continued to reiterate that her problems in her stomach may have been associated with worms although when questioned she did acknowledge that they had previously treated her for worms and she was not thinking as much about being infested anymore. Patient had reported no problems with the Invega Sustenna which was given on 01/06/2024 at 156 mg IM. Mental Status Exam MSE Comments: This is a slender white female in hospital gown with limited grooming and fleeting eye contact. She was lying in bed and appeared in some acute distress. Red round lesions noted on scalp with no hair in the vicinity of the lesions. No abnormal movements except for mild psychomotor retardation. She was more cooperative with exam in mild distress. Speech was improved in rate, productivity and volume. Mood described as better. Her affect was odd and subdued. Thought process: linear but superficial. Thought content: Patient denied suicidal ideation with no plan reported. She denied homicidal ideation. Hallucinatory parasitosis was appreciated. She denied auditory or visual hallucinations and did not appear to be responding to internal stimuli. Attention and concentration were impaired at this time. and memory was unreliable. She is alert and oriented to person and place but not date, month or day of week. Insight, judgment and impulse control are impaired. Vitals/I&O/Wt Last Vital Signs Temp 98.1 F 01/06/24 16:00 Pulse 121 H 01/07/24 12:00 Resp 18 01/07/24 12:00 BP 120/80 01/07/24 12:00 Pulse Ox 100 01/07/24 12:00 O2 Del Method Room Air 01/07/24 04:00 Data NPU 01/07/24 12:42 01/07/24 12:42 A&P Assessment and plan (1) Psychosis: (2) Alcohol abuse: (3) Methamphetamine use: (4) Suicidal ideation: (5) Depression: Plan This is a 53-year-old white female experiencing severe distress related to physical symptoms and has a history of mental health issues. She is currently off antipsychotic medication and is actively using alcohol and methamphetamine. 1. Invega Sustenna 234mg given on 01/02/24. Invega 156mg IM given on 01/06/24 Continue Invega oral 3mg dailyx3 days then discontinue. 2. Encourage individual, group and milieu therapies. 3. Initiate every 15 minute checks for safety on the unit. 4. Encourage sober living treatment after discharge at the highest level care to which she is willing to commit. JOHN. 5. Appreciate mMedical consult with patient likely to be discharged tommorow. Involuntary Hold Information 96 Hour Hold: 96 Hour Involuntary Admission: Yes Attestations NPU Medical Necessity Statement*: Inpatient hospitalization is medically necessary and the clinically appropriate intervention at this time. We will monitor medications and make changes as indicated. The patient's likely length of stay 1-2 days. Coding Level of Care Code Acute Code for [facility] Fwd Diagnoses Psychosis F29 Alcohol abuse F10.10 Methamphetamine use F15.10 Suicidal ideation R45.851 Depression F32.A
[2024-01-07] MEDS: sucralfate 1 gm/10 mL Oral Liq UDC PO ×2 (17:33→21:48)
[2024-01-07 18:42] LABS: Gamma Glutamyl Transferase 587 U/L (5-36)
[2024-01-07 18:49] LABS: HIV 1 & 2 Antibody Non-Reactive (Non-Reactiv); HIV 1 & 2 Antigen Non-Reactive (Non-Reactiv)
[2024-01-07 18:50] LABS: INR 0.82 (0.8-1.2)
[2024-01-07 20:00] VITALS: BP 132/84; PULSE 106; RESP 17; TEMP 36.6; O2SAT 98
[2024-01-07] MEDS: paliperidone ER 3 mg Tablet PO (21:48)
[2024-01-07] MEDS: ondansetron 4 MG Tablet PO (21:48)
[2024-01-07] MEDS: trazodone 50 mg Tablet PO (21:48)
[2024-01-07] MEDS: acetaminophen 325 mg Tablet 650 MG PO (21:48)
[2024-01-07] MEDS: sodium chloride 1 gm Tablet PO (21:48)
[2024-01-07] MEDS: metoprolol tartrate 25 mg Tablet PO (21:48)
[2024-01-07 22:27] LABS: Hepatitis A Antibody IgM Non-Reactive (Nonreactive); Hepatitis B Core AB, Total Non-Reactive (Nonreactive); Hepatitis B Surface AB < 3.5 (11.5-1000); Hepatitis B Surface Antigen Non-Reactive (Nonreactive)
[2024-01-08] VITALS: BP 130/74; PULSE 81; RESP 16; O2SAT 97
[2024-01-08] MEDS: trazodone 50 mg Tablet PO (01:02)
[2024-01-08] MEDS: OLANZapine 5 mg ODT PO (01:02)
[2024-01-08 04:00] VITALS: BP 160/99; PULSE 105; RESP 17; O2SAT 97
[2024-01-08 07:46] VITALS: BP 143/92; PULSE 91; RESP 16; TEMP 36.7; O2SAT 99
[2024-01-08] MEDS: amlodipine 10 mg Tablet PO (08:06)
[2024-01-08] MEDS: pantoprazole DR 40 mg Tablet PO (08:06)
[2024-01-08] MEDS: sodium chloride 1 gm Tablet PO (08:06)
[2024-01-08] MEDS: metoprolol tartrate 25 mg Tablet PO (08:06)
[2024-01-08] MEDS: ferrous gluconate 324 mg Tablet PO (08:06)
[2024-01-08] MEDS: multivitamin therapeutic Tablet 1 TAB PO (08:06)
[2024-01-08] MEDS: thiamine 100 mg Tablet PO (08:06)
[2024-01-08] MEDS: folic acid 1 mg Tablet PO (08:06)
[2024-01-08 08:14] LABS: Basophils # 0.1 10^3/uL (0.0-0.1); Eosinophils # 0.3 10^3/uL (0.0-0.8); Eosinophils % 4.5 %; Hematocrit 31.4 % (36-47); Lymphocytes # 1.8 10^3/uL (0.8-4.8); Lymphocytes % 30.1 %; Mean Corpuscular HGB Conc 30.3 g/dL (30-55); Mean Corpuscular Hemoglobin 23.5 pg (27-33); Mean Corpuscular Volume 77.5 fl (85-98); Mean Platelet Volume 10.5 fL (7.4-10.4); Monocytes # 0.7 10^3/uL (0.2-0.9); Monocytes % 11.9 %; Neutrophils # 3.04 10^3/uL (1.8-7.7); Neutrophils % 52.3 %; Nucleated Red Blood Cells % 0 %; Platelet Count 310 10^3/cmm (157-399); Red Blood Count 4.05 10^6/uL (3.85-5.65); Red Cell Distribution Width 23.8 % (12.1-15.1); White Blood Count 5.81 10^3/uL (3.29-11.43)
[2024-01-08 08:34] LABS: Alanine Aminotransferase 37 U/L (0-33); Albumin Level 3.5 g/dL (3.5-5.2); Alkaline Phosphatase 159 U/L (35-105); Anion Gap 14.8 (5-19); Aspartate Amino Transferase 53 U/L (0-32); Blood Urea Nitrogen 8 mg/dL (6-20); Calcium 9.3 mg/dL (8.5-10.5); Carbon Dioxide 21 mmol/L (22-29); Chloride 101 mmol/L (98-107); Creatinine Clr Calc Pharmacy 101.9545; Globulin 4.3 g/dL (1.3-4.6); Glomerular Filtration Rate 105.4 mL/min (90-130); Glucose 99 mg/dL (65-115); Osmolality Calculated 272 mOsm/kg (285-295); Potassium 4.8 mmol/L (3.5-5.1); Sodium 132 mmol/L (136-145); Total Bilirubin 0.2 mg/dL (0.15-1.2); Total Protein 7.8 g/dL (6.6-8.7)
[2024-01-08 08:36] LABS: Chol HDL Ratio 3.53 mg/dL (0.0-4.40); Cholesterol 166 mg/dL (0-200); HDL Cholesterol 47 mg/dL (60-100); LDL Cholesterol Calculated 96 mg/dL (50-129); Magnesium 1.9 mg/dL (1.7-2.3); Triglycerides 114 mg/dL (0-150); VLDL Cholestrol Calculation 23 mg/dL (0-30)
[2024-01-08 09:06] LABS: Folate Level 12.7 ng/mL (4.8-37.3)
[2024-01-08 12:00] VITALS: BP 106/74; PULSE 103; RESP 17; O2SAT 100
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
[2024-01-08 12:38] VITALS: BP 106/74; PULSE 103; RESP 17; O2SAT 100
--- NOTE | 2024-01-08 13:23 | P.PN_ITS ---
Subjective 2 Subjective: Plan to discharge today as per primary team. Patient feeling better. Able to tolerate oral diet. Vitals/I&O/Wt Last Vital Signs Temp 98.0 F 01/08/24 07:46 Pulse 103 H 01/08/24 12:38 Resp 17 01/08/24 12:38 BP 106/74 01/08/24 12:38 Pulse Ox 100 01/08/24 12:38 O2 Del Method Room Air 01/08/24 04:00 Physical Exam 2 Narrative: General: No acute distress, AO x3 HEENT: PERRLA, pupils bilaterally equal and reactive Chest: Normal vesicular breath sounds, no added sounds, equal good air entry bilaterally CVS: S1-S2 regular, no murmurs, no tachycardia, no gallops, no rubs Abdomen: Soft, nontender, no organomegaly, bowel sounds present Neuro: No focal deficits, no facial deformity, AO x3, power 5/5 in all limbs Data 01/08/24 08:04 01/08/24 08:04 A&P Assessment and plan (1) Nausea and vomiting: Nausea and vomiting most likely in setting of gastritis. Cannot rule out slight alcohol withdrawal as well. Symptoms improving after initiation of Protonix and Carafate. (2) Gastritis: History of stool for occult blood positive in July. 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 Patient would benefit with surgical consultation as an outpatient for endoscopy. Till that time patient should continue with Protonix twice daily for next 4 weeks followed by once daily and Carafate before meals and at bedtime for next 4 weeks. Counseled patient in detail about alcohol cessation for improvement of symptoms. (3) Alcohol abuse: (4) Iron deficiency anemia: Appreciate iron panel. Check vitamin B12 and folate levels. Continue with iron supplementation twice daily for now. Hemoglobin stable for now. (5) Alcohol use disorder, severe, dependence: (6) Hypertension: Not a known history. Goal blood pressure less than 140/90 mmHg. Currently on lisinopril 20 mg and amlodipine 10 mg. Heart rate slightly elevated. Could be in setting of alcohol withdrawal but patient would benefit from metoprolol. Stop lisinopril for now. Continue amlodipine. Add metoprolol 25 mg twice daily. Will uptitrate as for goal blood pressures. Plan Suicidal ideation/psychosis: Treatment as per primary team. Transaminitis: Most likely alcoholic hepatitis in nature. Check hepatitis panel. Check HIV. Check INR in AM. Appreciate labs. Hepatitis and HIV negative. Hemoglobin has remained stable. Stable persistent transaminitis. INR normal. Patient is to be discharged from primary team. She will be discharged on Protonix twice daily for 4 weeks followed by once daily, Carafate ACHS for 4 weeks, amlodipine 10 mg daily along with metoprolol 25 mg twice daily. Case management has been consulted to get a PCP appointment. Medical reconciliation has been done in the chart. Attestations 2 Medical Necessity Statement*: As per primary team. Diagnoses Nausea and vomiting R11.2 Gastritis K29.70 Alcohol abuse F10.10 Iron deficiency anemia D50.9 Alcohol use disorder, severe, dependence F10.20 Hypertension I10
[2024-01-08 13:39] LABS: Estmated Average Glucose 85; Hemoglobin A1C 4.6 % (4.0-6.0)
[2024-01-08 16:51] LABS: Hepatitis C Virus Antibody Reactive (Nonreactive)
[2024-01-11 14:44] LABS: HEP C RNA Viral Load Quant <1.18 NOT DETECTED Log IU/mL (NOT DETECTED); HEP C RNA Viral Load Quant <15 NOT DETECTED IU/mL (NOT DETECTED)
== END 2024-01-08 13:50 | disposition home or self-care (01) | DRG 885 ==
LOC: ER 20:35 → NP 20:55
PROVIDERS: Psychiatry & Neurology Psychiatry; Student in an Organized Health Care Education/Training Program; Admitting Provider Psychiatry & Neurology Psychiatry; Emergency Provider Emergency Medicine; Visit Provider Psychiatry & Neurology Psychiatry
DX: F29 Unspecified psychosis not due to a substance or known physiological condition (principal); R45.851 Suicidal ideations; F10.20 Alcohol dependence, uncomplicated; F15.90 Other stimulant use, unspecified, uncomplicated; Y90.6 Blood alcohol level of 120-199 mg/100 ml; F32.A Depression, unspecified; R51.9 Headache, unspecified; I10 Essential (primary) hypertension; K29.20 Alcoholic gastritis without bleeding; D50.9 Iron deficiency anemia, unspecified; R74.01 Elevation of levels of liver transaminase levels; Z72.0 Tobacco use
CPT/HCPCS: 36415; 70450; 80053; 80061; 80306; 80307; 82607; 82728; 82746; 82977; 83036; 83540; 83550; 83735; 84443; 85025; 85610; 86705; 86706; 86709; 86803; 87340; 87522; 87806; 96372; 96374; 96375; 97150; 97165; 99285; J1200; J2270; J2765; Q0162